=== PATIENT | female | born 1930 | race African-American/Black ===

== ENCOUNTER 2016-06-27 01:30 | Outpatient (CLI) ==
[2012-11-30 10:24] VITALS: TEMP 97
[2016-01-12 07:22] VITALS: BMI 25.8
== END 2016-06-27 01:31 | disposition home or self-care (01) ==
LOC: AMBL 01:30
PROVIDERS: ATTEND Family Medicine
DX: R06.2 Wheezing (principal); R53.1 Weakness; J44.9 Chronic obstructive pulmonary disease, unspecified; I50.9 Heart failure, unspecified; N28.9 Disorder of kidney and ureter, unspecified; W19.XXXA Unspecified fall, initial encounter; Y92.129 Unspecified place in nursing home as the place of occurrence of the external cause

== ENCOUNTER 2016-07-15 10:33 | Emergency (ER) ==
[2016-07-15 10:40] VITALS: BP 169/114; TEMP 97.8; BMI 24.7
[2016-07-15] MEDS ORDERED: DUONEB NEB STA (10:54)
[2016-07-15] MEDS ORDERED: LASIX IVP STA (10:55)
[2016-07-15 10:59] LABS: ABG PCO2 72.9 mmHg (35-45); ABG PH 7.292 (7.35-7.45)
[2016-07-15 11:00] LABS: ABG BASE EXCESS 9 (-2.0-2.0); ABG HCO3 35.2 (22.0-26.0); ABG TCO2 37 (22.0-28.0)
[2016-07-15] MEDS ORDERED: ROCEPHIN 1 GM in SODIUM CHLORIDE 50 ML IV STA (11:02)
[2016-07-15] MEDS ORDERED: AMIDATE IVP ONE (11:07)
[2016-07-15] MEDS ORDERED: VERSED ONE (11:07)
[2016-07-15] MEDS ORDERED: NORCURON ONE (11:07)
[2016-07-15] MEDS ORDERED: ROCEPHIN ONE (11:07)
[2016-07-15] MEDS ORDERED: ANECTINE ONE (11:07)
--- NOTE | 2016-07-15 11:16 | DI ---
EXAMINATION: AP chest radiograph. HISTORY: Short of air, on dialysis COMPARISON: 01/12/2016 FINDINGS: There is a focal opacity of the right mid to upper lung zone measuring up to 5.1 cm. There is adjac ent hazy increased density. There is prominence of the interstitial markings. No pneumothorax is s een. There is blunting of the left costophrenic angle. Enlargement of the cardiac silhouette is again seen. There is calcified atherosclerotic plaque of t he aorta. IMPRESSION: Cardiomegaly. Interstitial prominence suggesting interstitial edema. Right mid to upper lung zone opacities which may represent pneumonia or asymmetric pulmonary edema. Given the area of more focal opacity, follow-up to resolution is recommended as a mass cannot be ex cluded.
[2016-07-15 11:17] LABS: BASOPHILS % (AUTO) 0.2 % (0.0-3.0); EOSINOPHILS % (AUTO) 0.2 % (0.0-7.0); HEMATOCRIT 32.9 % (37.0-47.0); HEMOGLOBIN 10.7 g/dl (12.0-16.0); IMMATURE GRANULOCYTE % (AUTO) 0.6 % (0.0-5.0); LYMPHOCYTES # (AUTO) 0.6 K/uL (0.60-3.4); LYMPHOCYTES % (AUTO) 7.3 (10.0-50.0); MEAN CORPUSCULAR HEMOGLOBIN 28.1 pg (27.0-31.0); MEAN CORPUSCULAR HGB CONC 32.5 (31.8-35.4); MEAN CORPUSCULAR VOLUME 86.4 fl (81.0-99.0); MONOCYTES # (AUTO) 0.4 K/uL (0.4-2.0); NEUTROPHILS # (AUTO) 7.2 K/ul (2.0-6.9); NEUTROPHILS % (AUTO) 86.7; PLATELET COUNT 219 10^3/uL (140-440); RED BLOOD COUNT 3.81 10^6/ul (4.20-5.40); WHITE BLOOD COUNT 8.36 K/ul (4.6-10.2)
[2016-07-15 11:52] LABS: ANISOCYTOSIS 2+ (NOT PRESENT); PROTHROMBIN TIME 11.3 SEC (9.3-11.0)
[2016-07-15 12:03] LABS: ALBUMIN 3.2 g/dL (3.4-5.0); ALBUMIN/GLOBULIN RATIO 0.82; ANION GAP 16.6; BILIRUBIN,TOTAL 0.83 mg/dL (0.00-1.20); BUN/CREATININE RATIO 7.51; CALCIUM 8.7 mg/dL (8.2-10.2); POTASSIUM 5.6 mmol/L (3.5-5.10); TOTAL PROTEIN 7.1 g/dL (5.8-8.1); TROPONIN I 0.037 ng/ml (0.0000-0.4000)
[2016-07-15 12:10] LABS: ABG PH 7.366 (7.35-7.45)
[2016-07-15 12:11] LABS: ABG BASE EXCESS 9 (-2.0-2.0); ABG HCO3 34.7 (22.0-26.0); ABG PCO2 60.6 mmHg (35-45); ABG TCO2 37 (22.0-28.0)
[2016-07-15 12:11] LABS: CREATININE 7.45 mg/dL (0.60-1.30)
[2016-07-15 12:16] LABS: BILIRUBIN,URINE Negative (NEGATIVE); KETONES,URINE Negative (NEGATIVE); LEUKOCYTE ESTERASE ,URINE Negative (NEGATIVE); NITRITE,URINE Negative (NEGATIVE); PH,URINE 8.5 (5-9); PROTEIN,URINE 2+ (NEGATIVE); URINE, BLOOD Trace-intact (NEGATIVE)
[2016-07-15 12:24] LABS: ADD URINE MICROSCOPIC YES
--- NOTE | 2016-07-15 13:54 | ED.PDOC ---
General ED Provider: Dr. LINDSEY KEATING Chief Complaint: Shortness of Air Stated Complaint: SHORTNESS OF BREATH Time Seen by Physician: 10:37 Mode of Arrival: Ambulance Information Source: Patient, EMT Exam Limitations: No limitations Primary Care Provider: YOUSIF YANCEY Nursing and Triage Documentation Reviewed and Agree: Yes Respiratory Complaint Exam - Respiratory Complaint/Exam Symptoms Are: Still present Timing: Constant Initial Severity: Moderate Current Severity: Moderate Character: Reports: Non-productive cough Associated Signs and Symptoms: Reports: Dyspnea History of Healthcare-Acquired Pneumonia: No Related Surgical History: Reports: None Pulmonary Embolism Risk Factors: Bedrest Cardiac Risk Factors: Reports: Hypertension Pseudomonas Risk Factors: Reports: None Tuberculosis Risk Factors: Reports: None Status Asthmaticus Risk Factors: Reports: None Home Oxygen Use: No Recent Stress Test: No Recent Echo/LV Function: No Current Antibiotic Use: No Current Asthma Medication Use: No Respiratory Distress: Mild Inadequate Respiratory Effort: No Dysphagia Present: No Stridor Present: No JVD Present: No Accessory Muscle Use: No Retractions: Not Present Sinus Tenderness: None Grunting Respirations: No Kussmaul Respirations: No Differential Diagnoses: Pneumonia, Bronchitis Non-Traumatic Chest Pain Syncope: EKG Performed Review of Systems - Review Of Systems Constitutional: Reports: Malaise, Weakness Eyes: Reports: No symptoms Ears, Nose, Mouth, Throat: Reports: No symptoms Respiratory: Reports: Short of air Cardiac: Reports: No symptoms GI: Reports: No symptoms : Reports: No symptoms Musculoskeletal: Reports: No symptoms Skin: Reports: No symptoms Neurological: Reports: No symptoms Endocrine: Reports: No symptoms Hematologic/Lymphatic: Reports: No symptoms All Other Systems: Reviewed and Negative Past Medical History - Past Medical History Previously Healthy: No Endocrine: Reports: Unknown Cardiovascular: Reports: Hypertension Respiratory: Reports: Unknown Hematological: Reports: Unknown Gastrointestinal: Reports: Unknown Genitourinary: Reports: CKD (ON DIALYSIS) Neuro/Psych: Reports: Unknown Musculoskeletal: Reports: Unknown Cancer: Reports: Unknown Last Menstrual Period: none - Surgical History General Surgical History: Reports: Unknown - Family History Family History: Reports: Unknown (DIALYSIS DUE IN AM ) - Social History Smoking Status: Never smoker Hx Substance Use: No Alcohol Screening: None Physical Exam - Physical Exam Appearance: Ill-appearing, No pain distress, Well-nourished Ill-appearing: Severe Pain Distress: Mild Eyes: ROSAS, EOMI, Conjunctiva clear ENT: Ears normal, Nose normal, Oropharynx normal Respiratory: Breath sounds diminished, Crackles (RIGHT UPPER LOBE), Rhonchi Cardiovascular: RRR, Pulses normal, No rub, No murmur GI/: Soft, Nontender, No masses, Bowel sounds normal, No Organomegaly Musculoskeletal: Normal strength, ROM intact, No edema, No calf tenderness Skin: Warm, Dry, Normal color Neurological: Sensation intact, Motor intact, Reflexes intact, Cranial nerves intact, Alert, Oriented Psychiatric: Affect appropriate, Mood appropriate Critical Care Note - Critical Care Note Total Time (mins): 1 Course - Course Hematology/Chemistry: 07/15/16 11:10 07/15/16 11:10 Orders, Labs, Meds: Lab Review 07/15/16 07/15/16 07/15/16 10:49 11:10 12:07 WBC 8.36 RBC 3.81 L Hgb 10.7 L Hct 32.9 L MCV 86.4 MCH 28.1 MCHC 32.5 RDW Coeff of Luz Maria 22.5 H Plt Count 219 Immature Gran % (Auto) 0.6 Neut % (Auto) 86.7 Lymph % (Auto) 7.3 L [place] % (Auto) 5.0 Eos % (Auto) 0.2 Baso % (Auto) 0.2 Immature Gran # (Auto) 0.1 Neut # 7.2 H Lymph # 0.6 [place] # 0.4 Eos # 0.0 Baso # 0.0 PT 11.3 H INR 1.10 APTT 29.0 D-Dimer 1.86 Puncture Site L rad Lbrach O2 Saturation 76.0 L 94.0 L ABG pH 7.292 L* 7.366 ABG pCO2 72.9 H 60.6 H ABG pO2 47.0 L* 74.0 L ABG HCO3 35.2 H 34.7 H ABG Total CO2 37 H 37 H ABG Base Excess 9 H 9 H Buck Test + O2 Delivery Device Bipap FiO2 % 21.0 40.0 Sodium 134 L Potassium 5.6 H Chloride 91 L Carbon Dioxide 32 H Anion Gap 16.6 BUN 56 H Creatinine 7.45 H* Estimated GFR (MDRD) 6.00 BUN/Creatinine Ratio 7.51 Glucose 131 H Lactic Acid 4.5 Calcium 8.7 Total Bilirubin 0.83 AST 25 ALT 14 Alkaline Phosphatase 77 Total Creatine Kinase 67 Troponin I 0.0370 B-Natriuretic Peptide 2459 H Total Protein 7.1 Albumin 3.2 L Globulin 3.9 Albumin/Globulin Ratio 0.82 Urine Color Yellow Urine Clarity Clear Urine pH 8.5 Ur Specific [place] 1.015 Urine Protein 2+ Urine Glucose (UA) Negative Urine Ketones Negative Urine Blood Trace-intact Urine Nitrite Negative Urine Bilirubin Negative Urine Urobilinogen 0.2 Ur Leukocyte Esterase Negative Urine Microscopic RBC 0-2 Urine Microscopic WBC 0-2 Ur Squamous Epith Cells Not present Orders Category Date Time Status ABG DRAW REQUEST DAILY@0600 CARDIO 07/17/16 06:00 Ordered ABG DRAW REQUEST DAILY@0600 CARDIO 07/18/16 06:00 Ordered ABG DRAW REQUEST DAILY@0600 CARDIO 07/19/16 06:00 Ordered ABG DRAW REQUEST Routine CARDIO 07/15/16 11:30 Completed ABG DRAW REQUEST Stat CARDIO 07/15/16 10:49 Completed ABG DRAW REQUEST Stat CARDIO 07/15/16 12:09 Completed BIPAP Routine CARDIO 07/15/16 10:57 Active EKG-(ED ONLY) Stat CARDIO 07/15/16 10:48 Completed ED IV/MEDIPORT/POWERPORT .ONCE EMERGENCY 07/15/16 10:48 Active ABG DAILY@0600 LAB 07/16/16 06:00 Ordered ABG DAILY@0600 LAB 07/17/16 06:00 Ordered ABG DAILY@0600 LAB 07/18/16 06:00 Ordered ABG DAILY@0600 LAB 07/19/16 06:00 Ordered ABG Stat LAB 07/15/16 10:49 Completed ABG Stat LAB 07/15/16 12:07 Completed B-TYPE NATRIURETIC PEPTIDE Stat LAB 07/15/16 11:10 Completed BLOOD CULTURE Stat LAB 07/15/16 11:10 Received CBC W/ AUTO DIFF Stat LAB 07/15/16 11:10 Completed COMPREHENSIVE METABOLIC PANEL Stat LAB 07/15/16 11:10 Completed CREATINE KINASE Stat LAB 07/15/16 11:10 Completed D-DIMER Stat LAB 07/15/16 11:10 Completed LACTIC ACID Stat LAB 07/15/16 11:10 Completed PARTIAL THROMBOPLASTIN TIME Stat LAB 07/15/16 11:10 Completed PT WITH INR Stat LAB 07/15/16 11:10 Completed RBC MORPHOLOGY Stat LAB 07/15/16 11:10 Completed TROPONIN I Stat LAB 07/15/16 11:10 Completed URINALYSIS C & S IF INDICATED Stat LAB 07/15/16 12:07 Completed 0.9 % Sodium Chloride [Saline Flush] MEDS 07/15/16 10:48 Active 1 syr IVF PRN PRN Ceftriaxone Sodium [Rocephin] MEDS 07/15/16 11:07 Discontinued 1 gm .ROUTE .STK-MED ONE Ceftriaxone Sodium [Rocephin] 1 gm MEDS 07/15/16 11:02 Discontinued 0.9 % Sodium Chloride [Sodium Chloride] 50 ml IV ONCE Etomidate [Amidate] MEDS 07/15/16 11:07 Discontinued 20 mg IVP .STK-MED ONE Furosemide [Lasix] MEDS 07/15/16 10:55 Discontinued 40 mg IVP ONCE STA Ipratropium/Albuterol Neb [Duoneb] MEDS 07/15/16 10:54 Discontinued 1 vial NEB ONCE STA Midazolam HCl Inj [Versed] MEDS 07/15/16 11:07 Discontinued 5 mg .ROUTE .STK-MED ONE Succinylcholine Chloride [Anectine] MEDS 07/15/16 11:07 Discontinued 20 mg .ROUTE .STK-MED ONE Vecuronium [place] [Norcuron] MEDS 07/15/16 11:07 Discontinued 10 mg .ROUTE .STK-MED ONE CHEST, 1V AP ONLY Stat RADS 07/15/16 10:47 Completed Medications Generic Name Dose Route Start Last Admin Trade Name Freq PRN Reason Stop Dose Admin Sodium Chloride 1 syr 07/15/16 10:48 Saline Flush IVF PRN PRN To flush IV Discontinued Medications Generic Name Dose Route Start Last Admin Trade Name Freq PRN Reason Stop Dose Admin Albuterol/Ipratropium 1 vial 07/15/16 10:54 07/15/16 12:18 Duoneb NEB 07/15/16 10:55 Not Given ONCE STA Furosemide 40 mg 07/15/16 10:55 07/15/16 11:14 Lasix IVP 07/15/16 10:56 40 mg ONCE STA Administration Ceftriaxone Sodium 1 gm/ 50 mls @ 75 mls/hr 07/15/16 11:02 07/15/16 11:40 Sodium Chloride IV 07/15/16 11:41 75 mls/hr ONCE STA Administration Vital Signs: Temp Pulse Resp BP Pulse Ox 07/15/16 11:50 94 L 07/15/16 11:05 94 L 07/15/16 10:34 97.8 F 95 H 22 169/114 H 98 Departure - Departure Time of Disposition: 13:55 (TRANSFERED TO [facility] NO ICU BED)) Disposition: TSF SHORT-TRM HOSP Discharge Problem: Renal failure Right upper lobe pneumonia Qualifiers: Aspiration pneumonia type: unspecified Instructions: End Stage Kidney Disease (ED) Condition: Good Pt referred to PMD for follow-up: Yes (MARRY KEYS ) Allergies/Adverse Reactions: Allergies JAYSON Inhibitors Adverse Reaction (Verified 07/15/16 10:41) ibuprofen Adverse Reaction (Verified 07/15/16 10:41) Home Medications: Ambulatory Orders Aromatic Cascara Fluid Extract [Cascara [place]] 473 ml PO DAILY 01/12/16 Aspirin [Adult Low Dose Aspirin EC] 81 mg PO DAILY 01/12/16 Calcium Carbonate [Calcium] 500 mg PO DAILY 01/12/16 Carvedilol [Coreg] 12.5 mg PO BIDWM 01/12/16 Clonidine HCl 0.2 mg PO BID 01/12/16 Ergocalciferol (Vitamin D2) [Vitamin D2] 50,000 unit PO DAILY 01/12/16 Gabapentin [Neurontin] 300 mg PO BID 01/12/16 Hydrocodone Bit/Acetaminophen [[place] 5-325] 1 tab PO TID PRN 01/12/16 Hydroxyzine Pamoate [Vistaril] 25 mg PO BEDTIME 01/12/16 Lidocaine [Lidocream] 5 gm TP DAILY 01/12/16 Nifedipine [Nifedical Xl] 60 mg PO BID 01/12/16 Pantoprazole Sodium [Protonix] 20 mg PO DAILY 01/12/16 Disposition Discussed With: Patient, Family
== END 2016-07-15 15:00 | disposition short-term general hospital (02) ==
LOC: ED 10:33
DX: N18.9 Chronic kidney disease, unspecified (principal); J69.0 Pneumonitis due to inhalation of food and vomit; I10 Essential (primary) hypertension; Z99.2 Dependence on renal dialysis; Z79.899 Other long term (current) drug therapy
CPT/HCPCS: 36415; 80053; 81001; 82550; 82803; 83605; 83880; 84484; 85008; 85025; 85379; 85610; 85730; 87040; 93005; 93010; 94660; 96365; 96375; 99285

== ENCOUNTER 2016-07-15 14:55 | Outpatient (CLI) ==
[2012-11-30 10:24] VITALS: TEMP 97
[2016-07-15 10:40] VITALS: BMI 24.7
== END 2016-07-15 14:56 | disposition home or self-care (01) ==
LOC: AMBL 14:55
PROVIDERS: ATTEND Internal Medicine
DX: J96.90 Respiratory failure, unspecified, unspecified whether with hypoxia or hypercapnia (principal); N19 Unspecified kidney failure; Z99.2 Dependence on renal dialysis; J44.9 Chronic obstructive pulmonary disease, unspecified; R53.1 Weakness

== ENCOUNTER 2016-07-31 10:25 | Outpatient (CLI) | payer OTHER ==
[2012-11-30 10:24] VITALS: TEMP 97
[2016-07-31 11:32] LABS: CHOL/HDL RATIO 2.9 (4.5-5.5)
== END 2016-07-31 10:26 | disposition home or self-care (01) ==
LOC: NONPT 10:25
PROVIDERS: ATTEND Nurse Practitioner Family
DX: N18.9 Chronic kidney disease, unspecified (principal); R73.9 Hyperglycemia, unspecified; Z00.00 Encounter for general adult medical examination without abnormal findings; Z79.899 Other long term (current) drug therapy
CPT/HCPCS: 80061; 83036; 84443

== ENCOUNTER 2016-08-08 20:08 | Emergency (ER) | payer OTHER ==
[2016-08-08] MEDS ORDERED: DUONEB NEB STA (20:13)
[2016-08-08] MEDS ORDERED: SOLU-MEDROL 125 MG IVP STA (20:13)
[2016-08-08] MEDS ORDERED: CATAPRES PO STA (20:14)
[2016-08-08] MEDS ORDERED: MORPHINE 2 MG/ML SYRINGE IVP STA ×2 (20:14→23:02)
[2016-08-08 20:16] VITALS: TEMP 96.8; BMI 26.5
--- NOTE | 2016-08-08 20:27 | ED.PDOC ---
General ED Provider: Dr. MARIO HEARD Chief Complaint: Shortness of Air Stated Complaint: Feeling weak tired for 2-3 days, had HD only for 30 minutes, today shortness of breath. Time Seen by Physician: 20:25 Mode of Arrival: Ambulance Information Source: Patient Primary Care Provider: YOUSIF YANCEY Nursing and Triage Documentation Reviewed and Agree: Yes Respiratory Complaint Exam - Shortness of Air Complaint/Exam Symptoms Are: Still present Timing: Constant Initial Severity: Severe Current Severity: Severe Character: Reports: Dyspnea at rest Aggravating: Reports: URI Alleviating: Reports: None Associated Signs and Symptoms: Reports: Rapid breathing. Denies: Cough, Wheezing, Chest pain with cough, Chest pain, Fever, Chills, Diaphoresis, Nasal congestion, Dizziness, Calf pain, Calf swelling, Edema, Labored breathing, Decreased intake Related History: Reports: Similar episode History of Healthcare-Acquired Pneumonia: No Pulmonary Embolism Risk Factors: Reports: None Cardiac Risk Factors: Reports: Elevated lipids, Hypertension, CHF Pseudomonas Risk Factors: Reports: None Tuberculosis Risk Factors: Reports: None Home Oxygen Use: No Stridor Present: No Tracheal Deviation: No Subcutaneous Emphysema: No Accessory Muscle Use: No Diminished Breath Sounds: Yes Prolonged Expiratory Phase: Yes Unable to Speak Full Sentences: Yes Differential Diagnoses: CHF, Pulmonary Edema, Unstable Angina Review of Systems - Review Of Systems Constitutional: Reports: Malaise, Weakness Eyes: Reports: No symptoms Ears, Nose, Mouth, Throat: Reports: No symptoms Respiratory: Reports: Short of air Cardiac: Reports: No symptoms GI: Reports: No symptoms : Reports: No symptoms Musculoskeletal: Reports: No symptoms Skin: Reports: No symptoms Neurological: Reports: No symptoms Endocrine: Reports: No symptoms Hematologic/Lymphatic: Reports: No symptoms All Other Systems: Reviewed and Negative Past Medical History - Past Medical History Previously Healthy: No Endocrine: Reports: Unknown Cardiovascular: Reports: Hypertension Respiratory: Reports: Unknown Hematological: Reports: Unknown Gastrointestinal: Reports: Unknown Genitourinary: Reports: CKD (ON DIALYSIS) Neuro/Psych: Reports: Unknown Musculoskeletal: Reports: Unknown Cancer: Reports: Unknown Last Menstrual Period: UNKNOWN - Surgical History General Surgical History: Reports: Unknown - Family History Family History: Reports: Unknown (DIALYSIS DUE IN AM ) - Social History Smoking Status: Never smoker Hx Substance Use: No Alcohol Screening: None Physical Exam - Physical Exam Appearance: Ill-appearing, Thin Ill-appearing: Severe Eyes: EOMI, Conjunctiva clear ENT: Ears normal, Nose normal, Oropharynx normal Respiratory: Airway patent, Breath sounds diminished, Crackles, Rhonchi Cardiovascular: RRR, Pulses normal, No rub, No murmur GI/: Soft, Nontender, No masses, Bowel sounds normal, No Organomegaly Musculoskeletal: Normal strength, ROM intact, No edema, No calf tenderness Skin: Warm, Dry, Normal color Neurological: Sensation intact, Motor intact, Reflexes intact, Cranial nerves intact, Alert, Oriented Psychiatric: Affect appropriate, Mood appropriate Interpretation - Radiology Interpretation Radiology Interpretation By: Radiologist Radiology Results: Positive (CHF) Exam Interpreted: CT Scan Critical Care Note - Critical Care Note Total Time (mins): 0 Course - Course Hematology/Chemistry: 08/08/16 20:25 08/08/16 20:25 Orders, Labs, Meds: Lab Review 08/08/16 08/08/16 20:25 20:35 WBC 4.96 RBC 4.41 Hgb 12.1 Hct 39.3 MCV 89.1 MCH 27.4 MCHC 30.8 L RDW Coeff of Luz Maria 21.0 H Plt Count 226 Immature Gran % (Auto) 0.4 Neut % (Auto) 70.2 Lymph % (Auto) 20.0 [place] % (Auto) 6.0 Eos % (Auto) 2.8 Baso % (Auto) 0.6 Immature Gran # (Auto) 0.0 Neut # 3.5 Lymph # 1.0 [place] # 0.3 L Eos # 0.1 Baso # 0.0 Puncture Site Lb O2 Saturation 85.0 L ABG pH 7.438 ABG pCO2 51.1 H ABG pO2 58.0 L* ABG HCO3 34.6 H ABG Total CO2 36 H ABG Base Excess 10 H Buck Test + FiO2 % 21.0 Sodium 142 Potassium 3.5 Chloride 95 L Carbon Dioxide 35 H Anion Gap 15.5 BUN 24 H Creatinine 4.64 H* Estimated GFR (MDRD) 11.00 BUN/Creatinine Ratio 5.17 Glucose 110 Calcium 9.4 Total Bilirubin 0.62 AST 18 ALT 8 L Alkaline Phosphatase 79 Total Creatine Kinase 59 Troponin I 0.0320 Total Protein 7.1 Albumin 3.3 L Globulin 3.8 Albumin/Globulin Ratio 0.87 Orders Category Date Time Status ABG DRAW REQUEST Stat CARDIO 08/08/16 20:35 Ordered EKG-(ED ONLY) Stat CARDIO 08/08/16 20:13 Ordered NEBULIZER TREATMENT Stat CARDIO 08/08/16 20:13 Ordered Saline Lock [ED IV/MEDIPORT/POWERPORT] .ONCE EMERGENCY 08/08/16 20:22 Active ABG Stat LAB 08/08/16 20:35 Completed BNP [B-TYPE NATRIURETIC PEPTIDE] Stat LAB 08/08/16 21:47 Ordered CBC W/ AUTO DIFF Stat LAB 08/08/16 20:25 Completed COMPREHENSIVE METABOLIC PANEL Stat LAB 08/08/16 20:25 Completed CREATINE KINASE Stat LAB 08/08/16 20:25 Completed TROPONIN I Stat LAB 08/08/16 20:25 Completed 0.9 % Sodium Chloride [Saline Flush] MEDS 08/08/16 20:22 Ordered 1 syr IVF PRN PRN Clonidine HCl [Catapres] MEDS 08/08/16 20:14 Discontinued 0.3 mg PO ONCE STA Ipratropium/Albuterol Neb [Duoneb] MEDS 08/08/16 20:13 Discontinued 1 vial NEB ONCE STA Methylprednisolone Sod Succ/Pf [Solu-Medrol 125 mg] MEDS 08/08/16 20:39 Discontinued 125 mg IM ONCE STA Morphine Sulfate [Morphine 2 mg/ml Syringe] MEDS 08/08/16 20:39 Discontinued 2 mg IM ONCE STA Nitroglycerin [Nitrostat] MEDS 08/08/16 20:38 Discontinued 0.4 mg SL ONCE STA CT CHEST W/O CONTRAST Stat RADS 08/08/16 20:13 Completed Medications Generic Name Dose Route Start Last Admin Trade Name Freq PRN Reason Stop Dose Admin Sodium Chloride 1 syr 08/08/16 20:22 Saline Flush IVF PRN PRN To flush IV Discontinued Medications Generic Name Dose Route Start Last Admin Trade Name Freq PRN Reason Stop Dose Admin Albuterol/Ipratropium 1 vial 08/08/16 20:13 08/08/16 20:45 Duoneb NEB 08/08/16 20:14 1 vial ONCE STA Administration Clonidine 0.3 mg 08/08/16 20:14 08/08/16 20:22 Catapres PO 08/08/16 20:15 0.3 mg ONCE STA Administration Methylprednisolone Sodium Succinate 125 mg 08/08/16 20:39 08/08/16 20:49 Solu-Medrol 125 Mg IM 08/08/16 20:40 125 mg ONCE STA Administration Morphine Sulfate 2 mg 08/08/16 20:39 08/08/16 20:50 Morphine 2 Mg/Ml Syringe IM 08/08/16 20:40 2 mg ONCE STA Administration Nitroglycerin 0.4 mg 08/08/16 20:38 08/08/16 20:50 Nitrostat SL 08/08/16 20:39 0.4 mg ONCE STA Administration Vital Signs: Temp Pulse Resp BP Pulse Ox 08/08/16 20:11 96.8 F L 104 H 26 H 269/153 H 96 Departure - Departure Time of Disposition: 21:50 Disposition: TSF OTHER Discharge Problem: Shortness of breath Hypervolemia Qualifiers: Hypervolemia type: other Qualifier Code: (E87.79) Other fluid overload Instructions: Pulmonary Edema (ED) Condition: Stable Pt referred to PMD for follow-up: No Allergies/Adverse Reactions: Allergies JAYSON Inhibitors Adverse Reaction (Verified 07/15/16 10:41) ibuprofen Adverse Reaction (Verified 07/15/16 10:41) Home Medications: Ambulatory Orders Aromatic Cascara Fluid Extract [Cascara [place]] 473 ml PO DAILY 01/12/16 Aspirin [Adult Low Dose Aspirin EC] 81 mg PO DAILY 01/12/16 Calcium Carbonate [Calcium] 500 mg PO DAILY 01/12/16 Carvedilol [Coreg] 12.5 mg PO BIDWM 01/12/16 Clonidine HCl 0.2 mg PO BID 01/12/16 Ergocalciferol (Vitamin D2) [Vitamin D2] 50,000 unit PO DAILY 01/12/16 Gabapentin [Neurontin] 300 mg PO BID 01/12/16 Hydrocodone Bit/Acetaminophen [[place] 5-325] 1 tab PO TID PRN 01/12/16 Hydroxyzine Pamoate [Vistaril] 25 mg PO BEDTIME 01/12/16 Lidocaine [Lidocream] 5 gm TP DAILY 01/12/16 Nifedipine [Nifedical Xl] 60 mg PO BID 01/12/16 Pantoprazole Sodium [Protonix] 20 mg PO DAILY 01/12/16 Alprazolam 0.25 mg PO Q12HR PRN 07/30/16 Carvedilol 12.5 mg PO BID 07/30/16 Cholecalciferol (Vitamin D3) [Vitamin D3] 50,000 unit PO DIRECTED 07/30/16 Clonidine HCl [Catapres] 0.2 mg PO TID 07/30/16 Furosemide 40 mg PO DAILY 07/30/16 Gabapentin 300 mg PO BID 07/30/16 Hydralazine HCl 100 mg PO TID 07/30/16 Hydrocodone/Acetaminophen [[place] 5-325 Tablet] 1 each PO Q6HR PRN 07/30/16 Hydroxyzine Pamoate 25 mg PO BEDTIME 07/30/16 Nifedipine [Nifedical Xl] 60 mg PO BID 07/30/16 Ondansetron [Ondansetron Odt] 4 mg PO PRN 07/30/16 Pantoprazole Sodium 20 mg PO DAILY 07/30/16 Disposition Discussed With: Patient
[2016-08-08 20:31] LABS: BASOPHILS % (AUTO) 0.6 % (0.0-3.0); EOSINOPHILS # (AUTO) 0.1 K/ul (0.0-0.7); EOSINOPHILS % (AUTO) 2.8 % (0.0-7.0); HEMATOCRIT 39.3 % (37.0-47.0); HEMOGLOBIN 12.1 g/dl (12.0-16.0); IMMATURE GRANULOCYTE % (AUTO) 0.4 % (0.0-5.0); MEAN CORPUSCULAR HEMOGLOBIN 27.4 pg (27.0-31.0); MEAN CORPUSCULAR HGB CONC 30.8 (31.8-35.4); MEAN CORPUSCULAR VOLUME 89.1 fl (81.0-99.0); MONOCYTES # (AUTO) 0.3 K/uL (0.4-2.0); NEUTROPHILS # (AUTO) 3.5 K/ul (2.0-6.9); NEUTROPHILS % (AUTO) 70.2; PLATELET COUNT 226 10^3/uL (140-440); RED BLOOD COUNT 4.41 10^6/ul (4.20-5.40); WHITE BLOOD COUNT 4.96 K/ul (4.6-10.2)
[2016-08-08] MEDS ORDERED: NITROSTAT SL STA (20:38)
[2016-08-08 20:39] LABS: ABG PH 7.438 (7.35-7.45)
[2016-08-08] MEDS ORDERED: MORPHINE 2 MG/ML SYRINGE IM STA (20:39)
[2016-08-08] MEDS ORDERED: SOLU-MEDROL 125 MG IM STA (20:39)
[2016-08-08 20:40] LABS: ABG PCO2 51.1 mmHg (35-45)
[2016-08-08 20:41] LABS: ABG BASE EXCESS 10 (-2.0-2.0); ABG HCO3 34.6 (22.0-26.0); ABG TCO2 36 (22.0-28.0)
[2016-08-08 21:00] LABS: ALBUMIN 3.3 g/dL (3.4-5.0); ALBUMIN/GLOBULIN RATIO 0.87; ANION GAP 15.5; BILIRUBIN,TOTAL 0.62 mg/dL (0.00-1.20); BUN/CREATININE RATIO 5.17; CALCIUM 9.4 mg/dL (8.2-10.2); POTASSIUM 3.5 mmol/L (3.5-5.10); TOTAL PROTEIN 7.1 g/dL (5.8-8.1); TROPONIN I 0.032 ng/ml (0.0000-0.4000)
[2016-08-08 21:03] LABS: CREATININE 4.64 mg/dL (0.60-1.30)
--- NOTE | 2016-08-08 21:46 | CT ---
EXAM: CT of the chest without contrast. HISTORY: Shortness of breath. TECHNIQUE: COMPARISON: Chest x-ray day 07/15/2016. TECHNIQUE: Contiguous axial images at 5 mm intervals obtained from the lung apices to the upper abd omen. The study was performed without IV contrast. Sagittal and coronal reformats were reviewed. FINDINGS: The study is limited by motion artifact in the upper lobes. There are large bilateral pl eural effusions, right greater than left. Minimal adjacent atelectasis is seen. There is peribronc hial thickening. The airways are widely patent. Focal calcifications are seen in the right upper lo be. There are no suspicious nodules. The heart is enlarged. There is a small pericardial effusion. There are coronary calcifications. Aortic and mitral valve calcifications are seen. There is no significant mediastinal or hilar adenopathy. Evaluation limited without contrast. Limited views of the upper abdomen are unremarkable. The visualized portion of the liver, spleen, p ancreas and adrenal glands appear normal. Anasarca is seen. The osseous structures are normal for age. IMPRESSION: 1. Large bilateral pleural effusions with adjacent minimal atelectasis. 2. Mild peribronchial thickening. Correlate for edema. 3. Cardiomegaly. Small pericardial effusion. Coronary calcifications.
[2016-08-08] MEDS ORDERED: NORVASC PO STA (21:51)
[2016-08-08] MEDS ORDERED: LOPRESSOR IVP STA (21:51)
[2016-08-08] MEDS ORDERED: CARDIZEM INJ 125 MG in SODIUM CHLORIDE 100 ML IV SCH (23:30)
[2016-08-08] MEDS ORDERED: CARDIZEM INJ ONE (23:31)
[2016-08-08] MEDS ORDERED: TRANDATE IVP STA (23:48)
[2016-08-09 00:55] VITALS: BP 195/105
== END 2016-08-09 01:10 | disposition short-term general hospital (02) ==
LOC: ED 20:08
DX: R06.02 Shortness of breath (principal); E87.79 Other fluid overload; I10 Essential (primary) hypertension; E78.5 Hyperlipidemia, unspecified; I50.9 Heart failure, unspecified; N18.9 Chronic kidney disease, unspecified; Z99.2 Dependence on renal dialysis; Z79.899 Other long term (current) drug therapy
CPT/HCPCS: 36415; 80053; 82550; 82803; 83880; 84484; 85025; 93005; 93010; 94640; 96365; 96372; 96375; 99285

== ENCOUNTER 2016-08-09 01:22 | Outpatient (CLI) ==
[2012-11-30 10:24] VITALS: TEMP 97
[2016-08-08 20:16] VITALS: BMI 26.5
== END 2016-08-09 01:23 ==
LOC: AMBL 01:22
PROVIDERS: ATTEND Emergency Medicine
DX: I50.9 Heart failure, unspecified (principal)

== ENCOUNTER 2016-08-21 14:00 | Outpatient (CLI) ==
[2012-11-30 10:24] VITALS: TEMP 97
== END 2016-08-21 14:01 ==
LOC: AMBL 14:00
PROVIDERS: ATTEND Emergency Medicine
DX: I10 Essential (primary) hypertension (principal); N18.9 Chronic kidney disease, unspecified; Z99.2 Dependence on renal dialysis; R53.1 Weakness

== ENCOUNTER 2016-08-27 18:55 | Emergency (ER) ==
[2016-08-27 19:00] VITALS: TEMP 97.1; BMI 24.6
[2016-08-27] MEDS ORDERED: CATAPRES PO STA ×2 (19:05→19:09)
[2016-08-27] MEDS ORDERED: DUONEB NEB STA (19:07)
[2016-08-27 20:09] LABS: ABG BASE EXCESS 6 (-2.0-2.0); ABG HCO3 27.9 (22.0-26.0); ABG PCO2 27.3 mmHg (35-45); ABG PH 7.58 (7.35-7.45); ABG TCO2 29 (22.0-28.0)
[2016-08-27 20:10] LABS: BASOPHILS % (AUTO) 0.7 % (0.0-3.0); EOSINOPHILS # (AUTO) 0.1 K/ul (0.0-0.7); EOSINOPHILS % (AUTO) 1.5 % (0.0-7.0); HEMATOCRIT 46.6 % (37.0-47.0); IMMATURE GRANULOCYTE % (AUTO) 0.2 % (0.0-5.0); LYMPHOCYTES % (AUTO) 22.3 (10.0-50.0); MEAN CORPUSCULAR HEMOGLOBIN 28.1 pg (27.0-31.0); MEAN CORPUSCULAR HGB CONC 32.2 (31.8-35.4); MEAN CORPUSCULAR VOLUME 87.4 fl (81.0-99.0); MONOCYTES # (AUTO) 0.2 K/uL (0.4-2.0); NEUTROPHILS # (AUTO) 3.2 K/ul (2.0-6.9); NEUTROPHILS % (AUTO) 70.3; PLATELET COUNT 209 10^3/uL (140-440); RED BLOOD COUNT 5.33 10^6/ul (4.20-5.40); WHITE BLOOD COUNT 4.61 K/ul (4.6-10.2)
--- NOTE | 2016-08-27 20:10 | ED.PDOC ---
General ED Provider: Dr. MARIO HEARD Chief Complaint: Shortness of Air Stated Complaint: been shortness of breath since yesterday. Time Seen by Physician: 20:09 Mode of Arrival: Ambulance Information Source: Patient, EMT Primary Care Provider: ARELY CALDWELL Nursing and Triage Documentation Reviewed and Agree: Yes Respiratory Complaint Exam - Shortness of Air Complaint/Exam Symptoms Are: Still present Timing: Constant Initial Severity: Moderate Current Severity: Severe Character: Reports: Dyspnea at rest Aggravating: Reports: Allergens Alleviating: Reports: None Associated Signs and Symptoms: Denies: Cough, Wheezing, Chest pain with cough, Chest pain, Fever, Chills, Diaphoresis, Nasal congestion, Dizziness, Calf pain, Calf swelling, Edema, Rapid breathing, Labored breathing, Decreased intake Related History: Reports: Similar episode History of Healthcare-Acquired Pneumonia: No Pulmonary Embolism Risk Factors: Reports: None Review of Systems - Review Of Systems Constitutional: Reports: Malaise, Weakness Eyes: Reports: No symptoms Ears, Nose, Mouth, Throat: Reports: No symptoms Respiratory: Reports: Short of air Cardiac: Reports: No symptoms GI: Reports: No symptoms : Reports: No symptoms Musculoskeletal: Reports: No symptoms Skin: Reports: No symptoms Neurological: Reports: No symptoms Endocrine: Reports: No symptoms Hematologic/Lymphatic: Reports: No symptoms All Other Systems: Reviewed and Negative Past Medical History - Past Medical History Previously Healthy: No Endocrine: Reports: Unknown Cardiovascular: Reports: Hypertension Respiratory: Reports: Unknown Hematological: Reports: Unknown Gastrointestinal: Reports: Unknown Genitourinary: Reports: CKD (ON DIALYSIS) Neuro/Psych: Reports: Unknown Musculoskeletal: Reports: Unknown Cancer: Reports: Unknown Last Menstrual Period: na - Surgical History General Surgical History: Reports: Unknown - Family History Family History: Reports: Unknown (DIALYSIS DUE IN AM ) - Social History Smoking Status: Never smoker Hx Substance Use: No Alcohol Screening: None - Immunizations Tetanus Shot up to Date: (unknown) Physical Exam - Physical Exam Appearance: Ill-appearing Ill-appearing: Severe Eyes: ROSAS, EOMI, Conjunctiva clear ENT: Ears normal, Nose normal, Oropharynx normal Respiratory: Crackles Cardiovascular: RRR, Pulses normal, No rub, No murmur GI/: Soft, Nontender, No masses, Bowel sounds normal, No Organomegaly Musculoskeletal: Normal strength, ROM intact, No edema, No calf tenderness Skin: Warm, Dry, Normal color Neurological: Sensation intact, Motor intact, Reflexes intact, Cranial nerves intact, Alert, Oriented Psychiatric: Affect appropriate, Mood appropriate Interpretation - Radiology Interpretation Radiology Interpretation By: Radiologist Radiology Results: Negative Exam Interpreted: CT Scan Critical Care Note - Critical Care Note Total Time (mins): 0 Course - Course Hematology/Chemistry: 08/27/16 20:07 08/27/16 20:07 Orders, Labs, Meds: Lab Review 08/27/16 08/27/16 19:08 20:07 WBC 4.61 RBC 5.33 Hgb 15.0 Hct 46.6 MCV 87.4 MCH 28.1 MCHC 32.2 RDW Coeff of Luz Maria 20.7 H Plt Count 209 Immature Gran % (Auto) 0.2 Neut % (Auto) 70.3 Lymph % (Auto) 22.3 [place] % (Auto) 5.0 Eos % (Auto) 1.5 Baso % (Auto) 0.7 Immature Gran # (Auto) 0.0 Neut # 3.2 Lymph # 1.0 [place] # 0.2 L Eos # 0.1 Baso # 0.0 D-Dimer 1.69 Puncture Site Lr O2 Saturation 99.0 ABG pH 7.58 H* ABG pCO2 27.3 L ABG pO2 104.0 H ABG HCO3 27.9 H ABG Total CO2 29 H ABG Base Excess 6 H Buck Test + O2 Delivery Device Bnc Oxygen Liter Flow 2.00 FiO2 % 28.0 Sodium 142 Potassium 3.3 L Chloride 93 L Carbon Dioxide 32 H Anion Gap 20.3 BUN 27 H Creatinine 4.77 H* Estimated GFR (MDRD) 11.00 BUN/Creatinine Ratio 5.66 Glucose 81 L Calcium 9.7 Total Bilirubin 0.82 AST 29 ALT 15 Alkaline Phosphatase 87 Total Creatine Kinase 50 Troponin I 0.1160 B-Natriuretic Peptide 9785 H Total Protein 7.9 Albumin 3.9 Globulin 4.0 Albumin/Globulin Ratio 0.98 Procalcitonin 0.48 Orders Category Date Time Status ABG DRAW REQUEST Stat CARDIO 08/27/16 19:09 Completed EKG-(ED ONLY) Stat CARDIO 08/27/16 19:07 Completed NEBULIZER TREATMENT Stat CARDIO 08/27/16 19:07 Completed ED APPLY O2 .ONCE EMERGENCY 08/27/16 19:07 Active ED WOOD FLOOR REFINISHER APPLIED .ONCE EMERGENCY 08/27/16 19:07 Active ED IV/MEDIPORT/POWERPORT .ONCE EMERGENCY 08/27/16 19:07 Active ABG Stat LAB 08/27/16 19:08 Completed B-TYPE NATRIURETIC PEPTIDE Stat LAB 08/27/16 20:07 Completed BLOOD CULTURE Stat LAB 08/27/16 20:07 Received CBC W/ AUTO DIFF Stat LAB 08/27/16 20:07 Completed COMPREHENSIVE METABOLIC PANEL Stat LAB 08/27/16 20:07 Completed CREATINE KINASE Stat LAB 08/27/16 20:07 Completed D-DIMER Stat LAB 08/27/16 20:07 Completed PROCALCITONIN Stat LAB 08/27/16 20:07 Completed TROPONIN I Stat LAB 08/27/16 20:07 Completed 0.9 % Sodium Chloride [Saline Flush] MEDS 08/27/16 19:07 Ordered 1 syr IVF PRN PRN Clonidine HCl [Catapres] MEDS 08/27/16 19:09 Discontinued 0.1 mg PO ONCE STA Clonidine HCl [Catapres] MEDS 08/27/16 19:05 Discontinued 0.2 mg PO ONCE STA Dextrose 5 % in Water [Premix D5w 250 ml Vial] 1 vial MEDS 08/27/16 22:30 Ordered Nitroglycerin/D5w [Nitroglycerin] 25 mg IV 10 mcg/min Ipratropium/Albuterol Neb [Duoneb] MEDS 08/27/16 19:07 Discontinued 1 vial NEB ONCE STA Metoprolol Tartrate [Lopressor] MEDS 08/27/16 20:20 Discontinued 5 mg IVP ONCE STA Morphine Sulfate [Morphine 2 mg/ml Syringe] MEDS 08/27/16 20:21 Discontinued 2 mg IVP ONCE STA Ondansetron HCl/Pf [Zofran 4 mg/2 ml] MEDS 08/27/16 20:21 Discontinued 4 mg IVP ONCE STA CHEST, 1V AP ONLY Stat RADS 08/27/16 19:[address] HEAD W/O CONTRAST Stat RADS 08/27/16 22:01 Completed Medications Generic Name Dose Route Start Last Admin Trade Name Freq PRN Reason Stop Dose Admin Nitroglycerin/Dextrose 25 mg/ 250 mls @ 6 mls/hr 08/27/16 22:30 08/27/16 22: 39 DEXTROSE 5 % IN WATER IV 10 mcg/min .Q24H ALEX 6 mls/hr Protocol Administration 10 MCG/MIN Sodium Chloride 1 syr 08/27/16 19:07 08/27/16 20:42 Saline Flush IVF 1 syr PRN PRN Administration To flush IV Discontinued Medications Generic Name Dose Route Start Last Admin Trade Name Nikki PRN Reason Stop Dose Admin Albuterol/Ipratropium 1 vial 08/27/16 19:07 08/27/16 20:06 Duoneb NEB 08/27/16 19:08 1 vial ONCE STA Administration Clonidine 0.2 mg 08/27/16 19:05 08/27/16 19:10 Catapres PO 08/27/16 19:06 0.2 mg ONCE STA Administration Clonidine 0.1 mg 08/27/16 19:09 Catapres PO 08/27/16 19:10 ONCE STA Metoprolol Tartrate 5 mg 08/27/16 20:20 08/27/16 20:42 Lopressor IVP 08/27/16 20:21 5 mg ONCE STA Administration Morphine Sulfate 2 mg 08/27/16 20:21 08/27/16 20:37 Morphine 2 Mg/Ml Syringe IVP 08/27/16 20:22 2 mg ONCE STA Administration Ondansetron HCl 4 mg 08/27/16 20:21 08/27/16 20:36 Zofran 4 Mg/2 Ml IVP 08/27/16 20:22 4 mg ONCE STA Administration Vital Signs: Temp Pulse Resp BP Pulse Ox 08/27/16 22:39 66 20 215/103 H 08/27/16 18:56 97.1 F L 116 H 32 H 199/148 H 94 L Departure - Departure Time of Disposition: 23:02 Disposition: TSF OTHER Discharge Problem: Hypertensive urgency, Hemodialysis patient Fluid overload Qualifiers: Hypervolemia type: other Qualifier Code: (E87.79) Other fluid overload Instructions: Hypertensive Crisis (ED) Condition: Stable Pt referred to PMD for follow-up: No Allergies/Adverse Reactions: Allergies JAYSON Inhibitors Adverse Reaction (Verified 07/15/16 10:41) ibuprofen Adverse Reaction (Verified 07/15/16 10:41) Home Medications: Ambulatory Orders Aspirin [Adult Low Dose Aspirin EC] 81 mg PO DAILY 01/12/16 Carvedilol [Coreg] 12.5 mg PO BIDWM 01/12/16 Ergocalciferol (Vitamin D2) [Vitamin D2] 50,000 unit PO WEEKLY 01/12/16 Nifedipine [Nifedical Xl] 60 mg PO BID 01/12/16 Pantoprazole Sodium [Protonix] 20 mg PO DAILY 01/12/16 Clonidine HCl [Catapres] 0.2 mg PO TID 07/30/16 Furosemide 40 mg PO DAILY 07/30/16 Hydralazine HCl 100 mg PO TID 07/30/16 Transfer Form Completed: Yes Disposition Discussed With: Patient
[2016-08-27] MEDS ORDERED: LOPRESSOR IVP STA (20:20)
[2016-08-27] MEDS ORDERED: MORPHINE 2 MG/ML SYRINGE IVP STA (20:21)
[2016-08-27] MEDS ORDERED: ZOFRAN 4 MG/2 ML IVP STA (20:21)
[2016-08-27 20:37] LABS: ALBUMIN 3.9 g/dL (3.4-5.0); ALBUMIN/GLOBULIN RATIO 0.98; ANION GAP 20.3; BILIRUBIN,TOTAL 0.82 mg/dL (0.00-1.20); BUN/CREATININE RATIO 5.66; CALCIUM 9.7 mg/dL (8.2-10.2); POTASSIUM 3.3 mmol/L (3.5-5.10); TOTAL PROTEIN 7.9 g/dL (5.8-8.1); TROPONIN I 0.116 ng/ml (0.0000-0.4000)
[2016-08-27 20:38] LABS: CREATININE 4.77 mg/dL (0.60-1.30)
[2016-08-27] MEDS ORDERED: NITROPRESS 50 MG in DEXTROSE 5%-WATER IV SOLN 248 ML IV SCH (22:30)
[2016-08-27] MEDS ORDERED: NITROGLYCERIN 25 MG in PREMIX D5W 250 ML VIAL 1 VIAL IV SCH (22:30)
--- NOTE | 2016-08-27 22:43 | CT ---
EXAM: CT head without contrast 08/27/2016. Sagittal and coronal reformatted images obtained HISTORY: Headache COMPARISON: 04/11/2013 FINDINGS: There is no evidence of intracranial hemorrhage. The midline is maintained. There is no hydrocephalus. Generalized atrophy. Chronic small vessel ischemic changes. No cerebellar tonsilla r ectopia. Evaluation of the calvarium shows no fracture. The mastoid air cells are normally pneum atized. IMPRESSION: No acute intracranial abnormality.
[2016-08-27] MEDS ORDERED: NITROGLYCERIN 250 ML IV ONE (23:39)
[2016-08-27 23:41] VITALS: BP 206/104
--- NOTE | 2016-08-28 07:37 | DI ---
EXAM: CHEST FRONTAL VIEW HISTORY: Chest. COMPARISON: 07/15/2016 FINDINGS: Mild cardiomegaly is stable. Moderate aortic atherosclerosis. Subtle pulmonary vascular congestion. Previously noted consolidation right upper lobe has resolved. Questionable mild infil trate in the left base. No visible pleural fluid or pneumothorax. IMPRESSION: Cardiomegaly and mild left base density. Consider atelectasis or subtle pneumonia. Superimposed mi ld pulmonary vascular congestion.
== END 2016-08-28 00:05 | disposition short-term general hospital (02) ==
LOC: ED 18:55
DX: E87.79 Other fluid overload (principal); I16.0 Hypertensive urgency; N18.9 Chronic kidney disease, unspecified; Z99.2 Dependence on renal dialysis; R06.02 Shortness of breath; Z79.899 Other long term (current) drug therapy
CPT/HCPCS: 36415; 80053; 82550; 82803; 83880; 84145; 84484; 85025; 85379; 87040; 93005; 93010; 94640; 96365; 96375; 99285

== ENCOUNTER 2016-09-16 15:12 | Outpatient (CLI) ==
[2012-11-30 10:24] VITALS: TEMP 97
== END 2016-09-16 15:13 | disposition home or self-care (01) ==
LOC: AMBL 15:12
PROVIDERS: ATTEND Emergency Medicine
DX: T82.838A Hemorrhage due to vascular prosthetic devices, implants and grafts, initial encounter (principal); Y84.1 Kidney dialysis as the cause of abnormal reaction of the patient, or of later complication, without mention of misadventure at the time of the procedure

== ENCOUNTER 2016-09-22 07:05 | Emergency (ER) ==
[2016-09-22] MEDS ORDERED: DUONEB NEB ONE (07:17)
[2016-09-22] MEDS ORDERED: NITROSTAT SL PRN (07:21)
[2016-09-22] MEDS ORDERED: ZOFRAN 4 MG/2 ML IVP STA (07:21)
[2016-09-22] MEDS ORDERED: MORPHINE 2 MG/ML SYRINGE IVP STA (07:21)
[2016-09-22] MEDS ORDERED: LASIX IVP STA (07:24)
[2016-09-22] MEDS ORDERED: LASIX ONE (07:25)
[2016-09-22] MEDS ORDERED: CATAPRES PO STA (07:25)
--- NOTE | 2016-09-22 07:26 | ED.PDOC ---
General ED Provider: Dr. CATHRYN MIRANDA JR Chief Complaint: Shortness of Air Stated Complaint: Woke up with shortness of breath. Dialysis patient.[End]"I thought I was going to " "It felt like it took them 30 minutes to get there 97.8 112 36 100% 199/115 no pain, EMS notes fistular bleeding September 13, Arrived via EMS, with c/o shortness of breath upon waking this am. Visibly short of breath, using accessory muscles. O2@100% per non-rebreather. Awake, answering questions.[End]AVF present in right arm. Thrill and bruitt present. States last day of dialysis was Friday. patient is not sure of last dialysis, states last dialysis "they did not stop it up" and she was bleeding all over. initially unable to answer questions severely short of air better after duoneb and lasix. Time Seen by Physician: 07:26 Mode of Arrival: Ambulance Information Source: Patient Exam Limitations: Clinical condition Primary Care Provider: ARELY CALDWELL Nursing and Triage Documentation Reviewed and Agree: No Review of Systems - Review Of Systems Constitutional: Reports: Malaise Eyes: Reports: No symptoms Ears, Nose, Mouth, Throat: Reports: No symptoms Respiratory: Reports: Short of air, Wheezing Cardiac: Reports: No symptoms GI: Reports: No symptoms : Reports: No symptoms Musculoskeletal: Reports: No symptoms Skin: Reports: No symptoms Neurological: Reports: No symptoms Endocrine: Reports: No symptoms Hematologic/Lymphatic: Reports: No symptoms All Other Systems: Other Past Medical History - Past Medical History Previously Healthy: No Endocrine: Reports: Unknown Cardiovascular: Reports: Hypertension Respiratory: Reports: Unknown Hematological: Reports: Unknown Gastrointestinal: Reports: Unknown Genitourinary: Reports: CKD (ON DIALYSIS) Neuro/Psych: Reports: Unknown Musculoskeletal: Reports: Unknown Cancer: Reports: Unknown - Surgical History General Surgical History: Reports: Unknown - Family History Family History: Reports: Unknown (DIALYSIS DUE IN AM ) - Social History Smoking Status: Never smoker Hx Substance Use: No Alcohol Screening: None Physical Exam - Physical Exam Appearance: Ill-appearing, Thin Ill-appearing: Moderate Eyes: ROSAS, EOMI, Conjunctiva clear ENT: Ears normal, Nose normal, Oropharynx normal Neck: Supple Respiratory: Airway patent, Breath sounds diminished, Retractions (grunting) Cardiovascular: RRR, Tachycardia Skin: Warm, Dry, Normal color Neurological: Sensation intact, Alert Interpretation - Radiology Interpretation Radiology Interpretation By: ED Physician Radiology Results: Positive Exam Interpreted: CXR (RML infiltrate) - EKG Interpretation Time of EKG #1: 08:57 Rate: Normal Rhythm: Sinus ST Segment: Other (LAE) Re-Evaluation - Re-Evaluation Time of Re-Evaluation: 08:51 Status: Improved Vital Signs Stable: Yes Appearance: NAD Lungs: Other (raspy rhonchi no rales) Physician Notification - Case Discussed Physician Notified: DR BONNER Time of Notification: 10:20 (ajay-accepts) Critical Care Note - Critical Care Note Total Time (mins): 30 Course - Course Hematology/Chemistry: 09/22/16 07:35 09/22/16 07:35 Orders, Labs, Meds: Lab Review 09/22/16 09/22/16 09/22/16 07:22 07:35 08:33 WBC 8.74 RBC 2.92 L Hgb 8.1 L Hct 25.0 L MCV 85.6 MCH 27.7 MCHC 32.4 RDW Coeff of Luz Maria 17.9 H Plt Count 204 Immature Gran % (Auto) 0.9 Neut % (Auto) 82.0 Lymph % (Auto) 11.8 [place] % (Auto) 4.3 Eos % (Auto) 0.7 Baso % (Auto) 0.3 Immature Gran # (Auto) 0.1 Neut # 7.2 H Lymph # 1.0 [place] # 0.4 Eos # 0.1 Baso # 0.0 Puncture Site Lrad Lrad O2 Saturation 100.0 85.0 L ABG pH 7.322 L 7.392 ABG pCO2 68.1 H 56.0 H ABG pO2 251.0 H 51.0 L* ABG HCO3 35.3 H 34.0 H ABG Total CO2 37 H 36 H ABG Base Excess 9 H 9 H Buck Test + + O2 Delivery Device Neb Oxygen Liter Flow 8.00 FiO2 % 21.0 Sodium 137 Potassium 4.3 Chloride 95 L Carbon Dioxide 34 H Anion Gap 12.3 BUN 34 H Creatinine 4.94 H* Estimated GFR (MDRD) 10.00 BUN/Creatinine Ratio 6.88 Glucose 144 H Lactic Acid 14.0 Calcium 8.8 Total Bilirubin 0.66 AST 38 H ALT 16 Alkaline Phosphatase 87 Total Creatine Kinase 48 Troponin I 0.0260 B-Natriuretic Peptide 3489 H Total Protein 6.5 Albumin 3.3 L Globulin 3.2 Albumin/Globulin Ratio 1.03 Procalcitonin 0.28 Orders Category Date Time Status ABG DRAW REQUEST Stat CARDIO 09/22/16 07:22 Completed ABG DRAW REQUEST Stat CARDIO 09/22/16 08:33 Completed EKG-(ED ONLY) Stat CARDIO 09/22/16 07:21 Completed NEBULIZER TREATMENT Stat CARDIO 09/22/16 07:41 Completed ED APPLY O2 .ONCE EMERGENCY 09/22/16 07:21 Active ED PHILOSOPHY PROFESSOR APPLIED .ONCE EMERGENCY 09/22/16 07:21 Active ED IV/MEDIPORT/POWERPORT .ONCE EMERGENCY 09/22/16 07:21 Active ABG Stat LAB 09/22/16 07:22 Completed ABG Stat LAB 09/22/16 08:33 Completed B-TYPE NATRIURETIC PEPTIDE Stat LAB 09/22/16 07:35 Completed BLOOD CULTURE Stat LAB 09/22/16 07:35 Received CBC W/ AUTO DIFF Stat LAB 09/22/16 07:35 Completed COMPREHENSIVE METABOLIC PANEL Stat LAB 09/22/16 07:35 Completed CREATINE KINASE Stat LAB 09/22/16 07:35 Completed LACTIC ACID Stat LAB 09/22/16 07:35 Completed PROCALCITONIN Stat LAB 09/22/16 07:35 Completed TROPONIN I Stat LAB 09/22/16 07:35 Completed 0.9 % Sodium Chloride [Saline Flush] MEDS 09/22/16 07:21 Active 1 syr IVF PRN PRN Clonidine HCl [Catapres] MEDS 09/22/16 07:25 Discontinued 0.2 mg PO ONCE STA Furosemide [Lasix] MEDS 09/22/16 07:25 Discontinued 100 mg .ROUTE .STK-MED ONE Furosemide [Lasix] MEDS 09/22/16 07:24 Discontinued 80 mg IVP ONCE STA Ipratropium/Albuterol Neb [Duoneb] MEDS 09/22/16 07:17 Discontinued 1 vial NEB .STK-MED ONE Ipratropium/Albuterol Neb [Duoneb] MEDS 09/22/16 07:41 Discontinued 1 vial NEB ONCE STA Morphine Sulfate [Morphine 2 mg/ml Syringe] MEDS 09/22/16 07:21 Discontinued 2 mg IVP ONCE STA Nitroglycerin [Nitrostat] MEDS 09/22/16 07:21 Active 0.4 mg SL Q5MIN X 3 DOSES PRN Ondansetron HCl/Pf [Zofran 4 mg/2 ml] MEDS 09/22/16 07:21 Discontinued 4 mg IVP ONCE STA CHEST, 1V AP ONLY Stat RADS 09/22/16 07:21 Completed Medications Generic Name Dose Route Start Last Admin Trade Name Freq PRN Reason Stop Dose Admin Nitroglycerin 0.4 mg 09/22/16 07:21 09/22/16 07:27 Nitrostat SL 0.4 mg Q5MIN X 3 DOSES PRN Administration Chest Pain Sodium Chloride 1 syr 09/22/16 07:21 09/22/16 07:35 Saline Flush IVF 1 syr PRN PRN Administration To flush IV Discontinued Medications Generic Name Dose Route Start Last Admin Trade Name Freq PRN Reason Stop Dose Admin Albuterol/Ipratropium 1 vial 09/22/16 07:41 09/22/16 07:45 Duoneb NEB 09/22/16 07:42 Not Given ONCE STA Clonidine 0.2 mg 09/22/16 07:25 09/22/16 07:40 Catapres PO 09/22/16 07:26 0.2 mg ONCE STA Administration Furosemide 80 mg 09/22/16 07:24 09/22/16 07:28 Lasix IVP 09/22/16 07:25 80 mg ONCE STA Administration Morphine Sulfate 2 mg 09/22/16 07:21 09/22/16 07:34 Morphine 2 Mg/Ml Syringe IVP 09/22/16 07:22 2 mg ONCE STA Administration Ondansetron HCl 4 mg 09/22/16 07:21 09/22/16 07:33 Zofran 4 Mg/2 Ml IVP 09/22/16 07:22 4 mg ONCE STA Administration Vital Signs: Temp Pulse Resp BP Pulse Ox 09/22/16 07:39 100 09/22/16 07:11 97.8 F 112 H 36 H 199/115 H 100 Departure - Departure Time of Disposition: 10:21 Disposition: TSF SHORT-TRM HOSP Discharge Problem: Respiratory failure, CHF (congestive heart failure), Renal failure Condition: Stable Pt referred to PMD for follow-up: No (hospitalist) Allergies/Adverse Reactions: Allergies JAYSON Inhibitors Adverse Reaction (Verified 07/15/16 10:41) ibuprofen Adverse Reaction (Verified 07/15/16 10:41) Home Medications: Ambulatory Orders Aspirin [Adult Low Dose Aspirin EC] 81 mg PO DAILY 01/12/16 Carvedilol [Coreg] 12.5 mg PO BIDWM 01/12/16 Ergocalciferol (Vitamin D2) [Vitamin D2] 50,000 unit PO WEEKLY 01/12/16 Nifedipine [Nifedical Xl] 60 mg PO BID 01/12/16 Pantoprazole Sodium [Protonix] 20 mg PO DAILY 01/12/16 Clonidine HCl [Catapres] 0.2 mg PO TID 07/30/16 Furosemide 40 mg PO DAILY 07/30/16 Hydralazine HCl 100 mg PO TID 07/30/16
[2016-09-22 07:29] VITALS: BP 199/115; TEMP 97.8; BMI 20.9
[2016-09-22 07:32] LABS: ABG PH 7.322 (7.35-7.45)
[2016-09-22 07:33] LABS: ABG BASE EXCESS 9 (-2.0-2.0); ABG HCO3 35.3 (22.0-26.0); ABG PCO2 68.1 mmHg (35-45); ABG TCO2 37 (22.0-28.0)
[2016-09-22] MEDS ORDERED: DUONEB NEB STA (07:41)
[2016-09-22 07:44] LABS: BASOPHILS % (AUTO) 0.3 % (0.0-3.0); EOSINOPHILS # (AUTO) 0.1 K/ul (0.0-0.7); EOSINOPHILS % (AUTO) 0.7 % (0.0-7.0); HEMOGLOBIN 8.1 g/dl (12.0-16.0); IMMATURE GRANULOCYTE % (AUTO) 0.9 % (0.0-5.0); LYMPHOCYTES % (AUTO) 11.8 (10.0-50.0); MEAN CORPUSCULAR HEMOGLOBIN 27.7 pg (27.0-31.0); MEAN CORPUSCULAR HGB CONC 32.4 (31.8-35.4); MEAN CORPUSCULAR VOLUME 85.6 fl (81.0-99.0); MONOCYTES # (AUTO) 0.4 K/uL (0.4-2.0); MONOCYTES % (AUTO) 4.3 (0-10); NEUTROPHILS # (AUTO) 7.2 K/ul (2.0-6.9); PLATELET COUNT 204 10^3/uL (140-440); RED BLOOD COUNT 2.92 10^6/ul (4.20-5.40); WHITE BLOOD COUNT 8.74 K/ul (4.6-10.2)
[2016-09-22 08:11] LABS: ALBUMIN 3.3 g/dL (3.4-5.0); ALBUMIN/GLOBULIN RATIO 1.03; ANION GAP 12.3; BILIRUBIN,TOTAL 0.66 mg/dL (0.00-1.20); BUN/CREATININE RATIO 6.88; CALCIUM 8.8 mg/dL (8.2-10.2); POTASSIUM 4.3 mmol/L (3.5-5.10); TOTAL PROTEIN 6.5 g/dL (5.8-8.1); TROPONIN I 0.026 ng/ml (0.0000-0.4000)
[2016-09-22 08:15] LABS: CREATININE 4.94 mg/dL (0.60-1.30)
[2016-09-22 08:50] LABS: ABG BASE EXCESS 9 (-2.0-2.0); ABG PH 7.392 (7.35-7.45); ABG TCO2 36 (22.0-28.0)
--- NOTE | 2016-09-22 09:08 | DI ---
EXAM: Chest 1 view. HISTORY: Chest pain COMPARISON: 08/27/2016 FINDINGS: There is cardiomegaly with congestive heart failure. There is pulmonary venous congestio n, minimal to moderate central pulmonary edema and small left pleural effusion. Atelectasis sugges guilherme left lower lobe. No acute finding seen involving skeletal structures. Impression 1. Cardiomegaly and aortic atherosclerosis. 2. Interval change with congestive heart failure. There is pulmonary venous congestion, central p ulmonary edema and small left pleural effusion. 3. Left lower lobe atelectasis
== END 2016-09-22 11:40 | disposition short-term general hospital (02) ==
LOC: ED 07:05
DX: J96.00 Acute respiratory failure, unspecified whether with hypoxia or hypercapnia (principal); I50.9 Heart failure, unspecified; N18.9 Chronic kidney disease, unspecified; R00.0 Tachycardia, unspecified; I10 Essential (primary) hypertension; Z99.2 Dependence on renal dialysis; Z79.899 Other long term (current) drug therapy
CPT/HCPCS: 36415; 80053; 82550; 82803; 83605; 83880; 84145; 84484; 85025; 87040; 93005; 93010; 94640; 96374; 96375; 99285

== ENCOUNTER 2016-09-22 11:48 | Outpatient (CLI) | payer OTHER ==
[2012-11-30 10:24] VITALS: TEMP 97
[2016-09-22 07:29] VITALS: BMI 20.9
== END 2016-09-22 11:49 ==
LOC: AMBL 11:48
PROVIDERS: ATTEND Emergency Medicine
DX: R06.9 Unspecified abnormalities of breathing (principal); I50.9 Heart failure, unspecified; N19 Unspecified kidney failure; Z99.2 Dependence on renal dialysis; Z87.09 Personal history of other diseases of the respiratory system

== ENCOUNTER 2016-10-07 12:36 | Outpatient (CLI) ==
[2012-11-30 10:24] VITALS: TEMP 97
[2016-10-07 13:24] LABS: HEMOGLOBIN 6.6 g/dl (12.0-16.0)
[2016-10-07 13:28] LABS: HEMATOCRIT 19.4 % (37.0-47.0)
== END 2016-10-07 12:37 | disposition home or self-care (01) ==
LOC: NONPT 12:36
PROVIDERS: ATTEND Internal Medicine Nephrology
DX: D64.9 Anemia, unspecified (principal)
CPT/HCPCS: 85014; 85018

== ENCOUNTER 2016-10-09 09:13 | Emergency (ER) ==
[2016-10-09] MEDS ORDERED: MORPHINE 2 MG/ML SYRINGE IVP STA (09:21)
--- NOTE | 2016-10-09 09:21 | ED.PDOC ---
General ED Provider: Dr. CATHRYN MIRANDA JR Chief Complaint: Shortness of Air Stated Complaint: 86 yo dialysis patietn moaning loudly with each expiration increased heart rate aparrently syncopal at home unable to talk will say no and no it doesn't(hurt) but uable to get her to say yes or other words does not give intelligible answer to what is your name? H tachy abd seems tender susanna RUQ but denies no cce good aeration but loud upper resp noise. RN contacts family- esther with 2 units blood yesterday is lactose intolerant but decided she wanted a milkshake yesterday, today abdominal pain and diarrhea and short of breath today Time Seen by Physician: 09:10 Mode of Arrival: Ambulance Information Source: Family, EMT Exam Limitations: No limitations Primary Care Provider: ARELY CALDWELL Nursing and Triage Documentation Reviewed and Agree: No Review of Systems - Review Of Systems Constitutional: Reports: Malaise, Weakness Eyes: Reports: Other Ears, Nose, Mouth, Throat: Reports: No symptoms Respiratory: Reports: Cough, Short of air Cardiac: Reports: Other GI: Reports: Diarrhea, Nausea : Reports: No symptoms Musculoskeletal: Reports: No symptoms Skin: Reports: No symptoms Neurological: Reports: No symptoms Endocrine: Reports: No symptoms Hematologic/Lymphatic: Reports: No symptoms All Other Systems: Other Past Medical History - Past Medical History Previously Healthy: No Endocrine: Reports: Unknown Cardiovascular: Reports: Hypertension Respiratory: Reports: Unknown Hematological: Reports: Unknown Gastrointestinal: Reports: Unknown Genitourinary: Reports: CKD (ON DIALYSIS) Neuro/Psych: Reports: Unknown Musculoskeletal: Reports: Unknown Cancer: Reports: Unknown - Surgical History General Surgical History: Reports: Unknown - Family History Family History: Reports: Unknown (DIALYSIS DUE IN AM ) - Social History Smoking Status: Never smoker Hx Substance Use: No Alcohol Screening: None Physical Exam - Physical Exam Appearance: Ill-appearing, Thin Ill-appearing: Severe Pain Distress: None Neck: Supple Respiratory: Airway patent, Breath sounds diminished Cardiovascular: RRR, Tachycardia GI/: Soft, Tender (denies pain but moans when palpated note loose stool) Musculoskeletal: ROM intact, Limited strength Skin: Dry Neurological: Disoriented Interpretation - Radiology Interpretation Radiology Interpretation By: Radiologist Radiology Results: Positive Exam Interpreted: CXR - EKG Interpretation Time of EKG #1: 09:40 Rate: Normal Rhythm: Sinus Ectopy: None ST Segment: Other (LAE) Re-Evaluation - Re-Evaluation Time of Re-Evaluation: 09:43 (patietn alert oriented"thank you for saving my life" states "I did thistomyself" "I cannoteat lactose""I cannot eat that" (ice cream)) Status: Improved (patient appears unimproved but no longer moaning has sarmiento and bipap) Vital Signs Stable: Yes Appearance: NAD Lungs: Other (raspy) Physician Notification - Case Discussed Physician Notified: Chelo Shields will call hospitalist Time of Notification: 12:02 ([phone] dr hernandez accepts to chelo) Critical Care Note - Critical Care Note Total Time (mins): 30 Course - Course Hematology/Chemistry: 10/09/16 10:20 10/09/16 10:20 Orders, Labs, Meds: Lab Review 10/09/16 10/09/16 10/09/16 09:21 09:37 10:20 WBC 14.93 H RBC 3.38 L Hgb 9.6 L D Hct 28.0 L D MCV 82.8 MCH 28.4 MCHC 34.3 RDW Coeff of Luz Maria 17.4 H Plt Count 208 Immature Gran % (Auto) 1.1 Neut % (Auto) 89.6 Lymph % (Auto) 4.7 L [place] % (Auto) 4.3 Eos % (Auto) 0.1 Baso % (Auto) 0.2 Immature Gran # (Auto) 0.2 Neut # 13.4 H Lymph # 0.7 [place] # 0.6 Eos # 0.0 Baso # 0.0 D-Dimer (Manual) 3144.92 Puncture Site L brachial L brach O2 Saturation 56.0 L 100.0 ABG pH 7.213 L* 7.63 H* ABG pCO2 83.5 H 27.5 L ABG pO2 37.0 L* 172.0 H ABG HCO3 33.6 H 28.8 H ABG Total CO2 36 H 30 H ABG Base Excess 6 H 8 H Buck Test + + O2 Delivery Device bipap FiO2 % 21.0 50.0 Sodium 135 L Potassium 2.8 L Chloride 94 L Carbon Dioxide 28 Anion Gap 15.8 BUN 36 H Creatinine 5.20 H* Estimated GFR (MDRD) 10.00 BUN/Creatinine Ratio 6.92 Glucose 134 H Lactic Acid 12.1 Calcium 8.9 Total Bilirubin 0.55 AST 97 H ALT 56 Alkaline Phosphatase 110 Total Creatine Kinase 78 Troponin I 0.0390 B-Natriuretic Peptide 3358 H Total Protein 6.6 Albumin 3.2 L Globulin 3.4 Albumin/Globulin Ratio 0.94 Procalcitonin 0.54 Urine Color Yellow Urine Clarity Cloudy Urine pH 8.0 Ur Specific [place] 1.025 Urine Protein 3+ Urine Glucose (UA) Negative Urine Ketones Negative Urine Blood Trace-intact Urine Nitrite Negative Urine Bilirubin Negative Urine Urobilinogen 0.2 Ur Leukocyte Esterase Negative Urine Microscopic RBC 0-2 Ur Squamous Epith Cells Tntc Orders Category Date Time Status ABG DRAW REQUEST Stat CARDIO 10/09/16 09:21 Completed ABG DRAW REQUEST Stat CARDIO 10/09/16 09:56 Completed BIPAP Routine CARDIO 10/09/16 09:28 Completed EKG-(ED ONLY) Stat CARDIO 10/09/16 09:21 Completed NEBULIZER TREATMENT Stat CARDIO 10/09/16 09:33 Completed C-DIFF MONITORING (NURSING) BID CARE 10/09/16 09:22 Active ED APPLY O2 .ONCE EMERGENCY 10/09/16 09:21 Active ED SAWMILL HAND APPLIED .ONCE EMERGENCY 10/09/16 09:21 Active ED IV/MEDIPORT/POWERPORT .ONCE EMERGENCY 10/09/16 09:21 Active ABG DAILY@0600 LAB 10/10/16 06:00 Ordered ABG DAILY@0600 LAB 10/11/16 06:00 Ordered ABG DAILY@0600 LAB 10/12/16 06:00 Ordered ABG DAILY@0600 LAB 10/13/16 06:00 Ordered ABG Stat LAB 10/09/16 09:21 Completed ABG Stat LAB 10/09/16 10:20 Completed ABG Stat LAB 10/09/16 10:20 Received B-TYPE NATRIURETIC PEPTIDE Stat LAB 10/09/16 10:20 Completed BLOOD CULTURE Stat LAB 10/09/16 10:20 Received C. DIFFICILE Routine LAB 10/09/16 09:22 Uncollected CBC W/ AUTO DIFF Stat LAB 10/09/16 10:20 Completed COMPREHENSIVE METABOLIC PANEL Stat LAB 10/09/16 10:20 Completed CREATINE KINASE Stat LAB 10/09/16 10:20 Completed D-DIMER Stat LAB 10/09/16 10:20 Completed LACTIC ACID Stat LAB 10/09/16 10:20 Completed OCCULT BLOOD, STOOL Stat LAB 10/09/16 09:22 Uncollected PROCALCITONIN Stat LAB 10/09/16 10:20 Completed STOOL CULTURE Stat LAB 10/09/16 10:20 Received TROPONIN I Stat LAB 10/09/16 10:20 Completed URINALYSIS C & S IF INDICATED Stat LAB 10/09/16 09:37 Completed 0.9 % Sodium Chloride [Saline Flush] MEDS 10/09/16 09:21 Active 1 syr IVF PRN PRN Furosemide [Lasix] MEDS 10/09/16 09:31 Discontinued 40 mg IVP ONCE STA Guaifenesin/Codeine Phosphate [Robitussin AC Syrup] MEDS 10/09/16 11:57 Discontinued 5 ml PO ONCE STA Ipratropium/Albuterol Neb [Duoneb] MEDS 10/09/16 09:32 Discontinued 1 vial NEB ONCE STA Potassium Chloride [K-Dur] MEDS 10/09/16 11:57 Discontinued 40 meq PO ONCE STA CHEST, 1V AP ONLY Stat RADS 10/09/16 09:21 Completed Medications Generic Name Dose Route Start Last Admin Trade Name Freq PRN Reason Stop Dose Admin Sodium Chloride 1 syr 10/09/16 09:21 Saline Flush IVF PRN PRN To flush IV Discontinued Medications Generic Name Dose Route Start Last Admin Trade Name Freq PRN Reason Stop Dose Admin Albuterol/Ipratropium 1 vial 10/09/16 09:32 10/09/16 09:48 Duoneb NEB 10/09/16 09:33 1 vial ONCE STA Administration Furosemide 40 mg 10/09/16 09:31 10/09/16 09:42 Lasix IVP 10/09/16 09:32 40 mg ONCE STA Administration Guaifenesin/Codeine Phosphate 5 ml 10/09/16 11:57 Robitussin Ac Syrup PO 10/09/16 11:58 ONCE STA Potassium Chloride 40 meq 10/09/16 11:57 K-Dur PO 10/09/16 11:58 ONCE STA Vital Signs: Temp Pulse Resp BP Pulse Ox 10/09/16 11:35 97.3 F L 10/09/16 10:01 50 L 10/09/16 09:30 58 L 10/09/16 09:13 96.4 F L 120 H 30 H 197/126 H 91 L Departure - Departure Time of Disposition: 12:28 Disposition: TSF SHORT-TRM HOSP Discharge Problem: Respiratory failure Condition: Stable Pt referred to PMD for follow-up: No Allergies/Adverse Reactions: Allergies Sulfa (Sulfonamide Antibiotics) Allergy (Verified 10/09/16 10:09) Unknown JAYSON Inhibitors Adverse Reaction (Verified 10/09/16 10:09) ibuprofen Adverse Reaction (Verified 10/09/16 10:09) Home Medications: Ambulatory Orders Aspirin [Adult Low Dose Aspirin EC] 81 mg PO DAILY 01/12/16 Carvedilol [Coreg] 12.5 mg PO BIDWM 01/12/16 Ergocalciferol (Vitamin D2) [Vitamin D2] 50,000 unit PO WEEKLY 01/12/16 Nifedipine [Nifedical Xl] 60 mg PO BID 01/12/16 Pantoprazole Sodium [Protonix] 20 mg PO DAILY 01/12/16 Clonidine HCl [Catapres] 0.2 mg PO TID 07/30/16 Furosemide 40 mg PO DAILY 07/30/16 Hydralazine HCl 100 mg PO TID 07/30/16 Amlodipine Besylate 10 mg PO DAILY #30 tab-cap 10/02/16
[2016-10-09] MEDS ORDERED: ZOFRAN 4 MG/2 ML IVP STA (09:23)
[2016-10-09 09:30] VITALS: BP 197/126; BMI 22.6
[2016-10-09] MEDS ORDERED: LASIX IVP STA (09:31)
[2016-10-09] MEDS ORDERED: DUONEB NEB STA (09:32)
[2016-10-09 09:50] LABS: ABG PCO2 83.5 mmHg (35-45); ABG PH 7.213 (7.35-7.45)
[2016-10-09 09:51] LABS: ABG BASE EXCESS 6 (-2.0-2.0); ABG HCO3 33.6 (22.0-26.0); ABG TCO2 36 (22.0-28.0)
--- NOTE | 2016-10-09 10:05 | DI ---
EXAM: Chest one view HISTORY: Chest pain COMPARISON: 09/22/2016 TECHNIQUE: Single view of the chest was performed FINDINGS: Left central venous catheter. Pulmonary vascular congestion. No definite airspace consol idation. There is a small left pleural effusion. No visible pneumothorax. Heart is enlarged and u nchanged. Mediastinal contour unchanged, noting atherosclerosis. No acute abnormalities of the bon es. IMPRESSION: Cardiomegaly with pulmonary vascular congestion/congestive heart failure and small left pleural effusion.
[2016-10-09 10:27] LABS: BASOPHILS % (AUTO) 0.2 % (0.0-3.0); EOSINOPHILS % (AUTO) 0.1 % (0.0-7.0); HEMOGLOBIN 9.6 g/dl (12.0-16.0); IMMATURE GRANULOCYTE % (AUTO) 1.1 % (0.0-5.0); LYMPHOCYTES # (AUTO) 0.7 K/uL (0.60-3.4); LYMPHOCYTES % (AUTO) 4.7 (10.0-50.0); MEAN CORPUSCULAR HEMOGLOBIN 28.4 pg (27.0-31.0); MEAN CORPUSCULAR HGB CONC 34.3 (31.8-35.4); MEAN CORPUSCULAR VOLUME 82.8 fl (81.0-99.0); MONOCYTES # (AUTO) 0.6 K/uL (0.4-2.0); MONOCYTES % (AUTO) 4.3 (0-10); NEUTROPHILS # (AUTO) 13.4 K/ul (2.0-6.9); NEUTROPHILS % (AUTO) 89.6; PLATELET COUNT 208 10^3/uL (140-440); RED BLOOD COUNT 3.38 10^6/ul (4.20-5.40); WHITE BLOOD COUNT 14.93 K/ul (4.6-10.2)
[2016-10-09 10:31] LABS: ABG BASE EXCESS 8 (-2.0-2.0); ABG HCO3 28.8 (22.0-26.0); ABG PCO2 27.5 mmHg (35-45); ABG PH 7.63 (7.35-7.45); ABG TCO2 30 (22.0-28.0)
[2016-10-09 10:54] LABS: ALBUMIN 3.2 g/dL (3.4-5.0); ALBUMIN/GLOBULIN RATIO 0.94; ANION GAP 15.8; BILIRUBIN,TOTAL 0.55 mg/dL (0.00-1.20); BUN/CREATININE RATIO 6.92; CALCIUM 8.9 mg/dL (8.2-10.2); POTASSIUM 2.8 mmol/L (3.5-5.10); TOTAL PROTEIN 6.6 g/dL (5.8-8.1); TROPONIN I 0.039 ng/ml (0.0000-0.4000)
[2016-10-09 10:57] LABS: CREATININE 5.2 mg/dL (0.60-1.30)
[2016-10-09 11:17] LABS: BILIRUBIN,URINE Negative (NEGATIVE); KETONES,URINE Negative (NEGATIVE); LEUKOCYTE ESTERASE ,URINE Negative (NEGATIVE); NITRITE,URINE Negative (NEGATIVE); PROTEIN,URINE 3+ (NEGATIVE); URINE, BLOOD Trace-intact (NEGATIVE)
[2016-10-09 11:25] LABS: ADD URINE MICROSCOPIC YES
[2016-10-09 11:35] VITALS: TEMP 97.3
[2016-10-09] MEDS ORDERED: K-DUR PO STA (11:57)
[2016-10-09] MEDS ORDERED: ROBITUSSIN AC SYRUP PO STA (11:57)
[2016-10-11 18:13] LABS: ABG PCO2 27.5 mmHg (35-45); ABG PH 7.628 (7.35-7.45)
[2016-10-11 18:14] LABS: ABG BASE EXCESS 8 (-2.0-2.0); ABG HCO3 28.8 (22.0-26.0); ABG TCO2 30 (22.0-28.0)
== END 2016-10-09 13:36 | disposition short-term general hospital (02) ==
LOC: ED 09:13
DX: J96.90 Respiratory failure, unspecified, unspecified whether with hypoxia or hypercapnia (principal); I12.9 Hypertensive chronic kidney disease with stage 1 through stage 4 chronic kidney disease, or unspecified chronic kidney disease; N18.9 Chronic kidney disease, unspecified; R06.02 Shortness of breath; Z99.2 Dependence on renal dialysis; Z79.899 Other long term (current) drug therapy
CPT/HCPCS: 36415; 80053; 81001; 82550; 82803; 83605; 83880; 84145; 84484; 85025; 85379; 87040; 93005; 93010; 94640; 94660; 96374; 99285

== ENCOUNTER 2016-10-09 13:22 | Outpatient (CLI) | payer OTHER ==
[2012-11-30 10:24] VITALS: TEMP 97
[2016-10-09 09:30] VITALS: BMI 22.6
== END 2016-10-09 13:23 ==
LOC: AMBL 13:22
PROVIDERS: ATTEND Emergency Medicine
DX: N19 Unspecified kidney failure (principal); R06.02 Shortness of breath; J44.9 Chronic obstructive pulmonary disease, unspecified; Z99.2 Dependence on renal dialysis

== ENCOUNTER 2016-11-02 03:47 | Emergency (ER) ==
[2016-11-02 04:04] LABS: ABG PCO2 98.1 mmHg (35-45); ABG PH 7.186 (7.35-7.45)
[2016-11-02 04:05] LABS: ABG BASE EXCESS 9 (-2.0-2.0); ABG HCO3 37.1 (22.0-26.0); ABG TCO2 40 (22.0-28.0)
[2016-11-02 04:11] LABS: BASOPHILS # (AUTO) 0.1 K/uL (0-0.2); BASOPHILS % (AUTO) 0.3 % (0.0-3.0); EOSINOPHILS # (AUTO) 0.2 K/ul (0.0-0.7); EOSINOPHILS % (AUTO) 1.3 % (0.0-7.0); HEMOGLOBIN 11.9 g/dl (12.0-16.0); IMMATURE GRANULOCYTE % (AUTO) 2.9 % (0.0-5.0); LYMPHOCYTES # (AUTO) 1.9 K/uL (0.60-3.4); LYMPHOCYTES % (AUTO) 12.5 (10.0-50.0); MEAN CORPUSCULAR HEMOGLOBIN 29.2 pg (27.0-31.0); MEAN CORPUSCULAR HGB CONC 31.3 (31.8-35.4); MEAN CORPUSCULAR VOLUME 93.1 fl (81.0-99.0); MONOCYTES % (AUTO) 6.7 (0-10); NEUTROPHILS # (AUTO) 11.5 K/ul (2.0-6.9); NEUTROPHILS % (AUTO) 76.3; PLATELET COUNT 260 10^3/uL (140-440); RED BLOOD COUNT 4.08 10^6/ul (4.20-5.40); WHITE BLOOD COUNT 15.06 K/ul (4.6-10.2)
[2016-11-02] MEDS: ANECTINE ONE (04:17)
[2016-11-02 04:23] VITALS: BP 244/117; TEMP 97.2; BMI 20.1
[2016-11-02 04:30] LABS: ALBUMIN 3.4 g/dL (3.4-5.0); ALBUMIN/GLOBULIN RATIO 0.83; ANION GAP 17.3; BILIRUBIN,TOTAL 0.64 mg/dL (0.00-1.20); BUN/CREATININE RATIO 7.95; CALCIUM 8.7 mg/dL (8.2-10.2); CREATININE 3.27 mg/dL (0.60-1.30); POTASSIUM 4.3 mmol/L (3.5-5.10); TOTAL PROTEIN 7.5 g/dL (5.8-8.1)
[2016-11-02 04:36] LABS: TROPONIN I 0.03 ng/ml (0.0000-0.4000)
[2016-11-02] MEDS: VERSED ONE (04:40)
[2016-11-02] MEDS: SUBLIMAZE ONE (04:40)
[2016-11-02] MEDS: DIPRIVAN 100 ML VIAL 100 ML IV ONE (04:45)
--- NOTE | 2016-11-02 04:52 | ED.PDOC ---
General ED Provider: Dr. RASHEED DILLON-ER Chief Complaint: Respiratory Complaint Stated Complaint: brought in by ems in acute resp distress--tachypneic, and hypoxic--dialysis patient.. Time Seen by Physician: 04:15 Mode of Arrival: Ambulance Information Source: EMT Exam Limitations: Clinical condition Primary Care Provider: MARIO [facility]FO[facility] Nursing and Triage Documentation Reviewed and Agree: Yes Respiratory Complaint Exam - Shortness of Air Complaint/Exam Onset/Duration: less than 24hrs Symptoms Are: Still present Timing: Constant Initial Severity: Mild Current Severity: Severe Character: Reports: Dyspnea at rest Aggravating: Reports: None Alleviating: Reports: None Associated Signs and Symptoms: Reports: Rapid breathing, Labored breathing, Decreased intake. Denies: Cough, Wheezing, Chest pain with cough, Chest pain, Fever, Chills, Diaphoresis, Nasal congestion, Dizziness, Calf pain, Calf swelling, Edema Related History: Reports: Similar episode History of Healthcare-Acquired Pneumonia: No Pulmonary Embolism Risk Factors: Reports: Smoking Cardiac Risk Factors: Reports: Smoking, Hypertension Pseudomonas Risk Factors: Reports: Chronic Lung Disease Tuberculosis Risk Factors: Reports: Chronic Resp. Faliure, Smoking Home Oxygen Use: Yes Recent Stress Test: No Recent Echo/LV Function: No Respiratory Distress: Severe Stridor Present: No Tracheal Deviation: No Subcutaneous Emphysema: No Accessory Muscle Use: Yes Diminished Breath Sounds: Yes Prolonged Expiratory Phase: No Unable to Speak Full Sentences: Yes Fatigue: Yes Leg Swelling: No Emanuel's Sign Present: No Grunting Respirations: No Kussmaul Respirations: No Differential Diagnoses: CHF, Pulmonary Edema, COPD Exacerbation Quality Indicator For Non-Traumatic Chest Pain/Syncope: EKG Performed Quality Indicators For Pneumonia/CAP: Blood Cultures-SCU admit, SpO2 assessed, Empiric Antibiotic Rx, Vital signs, Mental status assessed Review of Systems - Review Of Systems Constitutional: Reports: No symptoms Eyes: Reports: No symptoms Ears, Nose, Mouth, Throat: Reports: No symptoms Respiratory: Reports: Short of air Cardiac: Reports: No symptoms GI: Reports: No symptoms : Reports: No symptoms Musculoskeletal: Reports: No symptoms Skin: Reports: No symptoms Neurological: Reports: No symptoms Endocrine: Reports: No symptoms Hematologic/Lymphatic: Reports: No symptoms All Other Systems: Reviewed and Negative Past Medical History - Past Medical History Previously Healthy: No Endocrine: Reports: Unknown Cardiovascular: Reports: Hypertension Respiratory: Reports: Unknown Hematological: Reports: Unknown Gastrointestinal: Reports: Unknown Genitourinary: Reports: CKD (ON DIALYSIS) Neuro/Psych: Reports: Unknown Musculoskeletal: Reports: Unknown Cancer: Reports: Unknown Last Menstrual Period: N/A - Surgical History General Surgical History: Reports: Unknown - Family History Family History: Reports: Unknown (DIALYSIS DUE IN AM ) - Social History Smoking Status: Current every day smoker, Heavy tobacco smoker Hx Substance Use: No Alcohol Screening: None Lives: With family Physical Exam - Physical Exam Appearance: Well-appearing, No pain distress, Well-nourished Eyes: ROSAS ENT: Ears normal, Nose normal, Oropharynx normal Neck: Supple Respiratory: Airway patent, Breath sounds diminished, Retractions Cardiovascular: Tachycardia GI/: Soft, Nontender, No masses, Bowel sounds normal, No Organomegaly Musculoskeletal: Normal strength, ROM intact, No edema, No calf tenderness Skin: Warm, Dry, Normal color Neurological: Sensation intact, Motor intact, Reflexes intact, Cranial nerves intact, Alert, Oriented Psychiatric: Affect appropriate Interpretation - Radiology Interpretation Radiology Interpretation By: ED Physician Radiology Results: Negative Procedures - Intubation Indication: Present: Respiratory Insufficiency Time of Intubation: 04:45 Medications: Yes: Norcuron, Succinylcholine, Propofol Type of Tube Used: Endotracheal Tube Size: 7.5 Cricoid Pressure Used: No Tube Wood Used: Yes Number of Attempts: 1 Suction Used: Yes Glidescope Used: Yes CO2 Detector Used: Yes Lung Sounds Equal Bilaterally: Yes Intubation Complications: Present: No complications Tube Inserted By: r shirley Tube Placement Verified by X-ray: Yes Re-Evaluation - Re-Evaluation Time of Re-Evaluation: 05:32 Status: Unchanged Vital Signs Stable: Yes Pain Level: 1 Appearance: NAD Lungs: Clear Skin: Warm and Dry Neuro: Alert and Oriented X3 CV: RRR Physician Notification - Case Discussed Physician Notified: dr fitzpatrick Time of Notification: 05:32 Critical Care Note - Critical Care Note Total Time (mins): 60 Course - Course Hematology/Chemistry: 11/02/16 04:00 11/02/16 04:00 Orders, Labs, Meds: Lab Review 11/02/16 11/02/16 11/02/16 03:48 04:00 04:51 WBC 15.06 H RBC 4.08 L Hgb 11.9 L Hct 38.0 MCV 93.1 MCH 29.2 MCHC 31.3 L RDW Coeff of Luz Maria 20.6 H Plt Count 260 Immature Gran % (Auto) 2.9 Neut % (Auto) 76.3 Lymph % (Auto) 12.5 [place] % (Auto) 6.7 Eos % (Auto) 1.3 Baso % (Auto) 0.3 Immature Gran # (Auto) 0.4 Neut # 11.5 H Lymph # 1.9 [place] # 1.0 Eos # 0.2 Baso # 0.1 D-Dimer (Manual) 2548.67 Puncture Site Lb Accident O2 Saturation 62.0 L 100.0 ABG pH 7.186 L* 7.562 H* ABG pCO2 98.1 H 35.8 ABG pO2 42.0 L* 217.0 H ABG HCO3 37.1 H 32.3 H ABG Total CO2 40 H 33 H ABG Base Excess 9 H 10 H Buck Test + + O2 Delivery Device Cpap Vent Oxygen Liter Flow 15.00 FiO2 % 100.0 50.0 Sodium 140 Potassium 4.3 Chloride 96 L Carbon Dioxide 31 Anion Gap 17.3 BUN 26 H Creatinine 3.27 H Estimated GFR (MDRD) 16.00 BUN/Creatinine Ratio 7.95 Glucose 181 H Lactic Acid 8.8 Calcium 8.7 Total Bilirubin 0.64 AST 46 H ALT 22 Alkaline Phosphatase 181 H Total Creatine Kinase 38 Troponin I 0.0300 B-Natriuretic Peptide 4008 H Total Protein 7.5 Albumin 3.4 Globulin 4.1 Albumin/Globulin Ratio 0.83 Procalcitonin 61.00 Orders Category Date Time Status ABG DRAW REQUEST Stat CARDIO 11/02/16 03:48 Completed EKG-(ED ONLY) Stat CARDIO 11/02/16 03:48 Completed EKG-(ED ONLY) Stat CARDIO 11/02/16 04:08 Completed Sr. Payroll Manager [ED SALES DEMONSTRATOR APPLIED] .ONCE EMERGENCY 11/02/16 03:50 Active IV [ED IV/MEDIPORT/POWERPORT] .ONCE EMERGENCY 11/02/16 03:50 Active ABG Stat LAB 11/02/16 03:48 Completed ABG Stat LAB 11/02/16 04:51 Completed B-TYPE NATRIURETIC PEPTIDE Stat LAB 11/02/16 04:00 Completed BLOOD CULTURE Stat LAB 11/02/16 04:00 Received BLOOD CULTURE Stat LAB 11/02/16 04:00 Received CBC W/ AUTO DIFF Stat LAB 11/02/16 04:00 Completed COMPREHENSIVE METABOLIC PANEL Stat LAB 11/02/16 04:00 Completed CREATINE KINASE Stat LAB 11/02/16 04:00 Completed D-DIMER Stat LAB 11/02/16 04:00 Completed LACTIC ACID Stat LAB 11/02/16 04:00 Completed PROCALCITONIN Stat LAB 11/02/16 04:00 Completed TROPONIN I Stat LAB 11/02/16 04:00 Completed 0.9 % Sodium Chloride [Saline Flush] MEDS 11/02/16 03:50 Ordered 1 syr IVF PRN PRN Fentanyl Amp [Sublimaze] MEDS 11/02/16 04:01 Discontinued 100 mcg .ROUTE .STK-MED ONE Midazolam HCl Inj [Versed] MEDS 11/02/16 04:01 Discontinued 5 mg .ROUTE .STK-MED ONE Piperacillin Sodium/Tazobactam [Zosyn 3.375 gm] 3.375 MEDS 11/02/16 04:56 Active gm 0.9 % Sodium Chloride [Sodium Chloride] 100 ml IV ONCE Propofol Inj [Diprivan 100 ml Vial] 100 ml MEDS 11/02/16 04:58 Discontinued IV .STK-MED Succinylcholine Chloride [Anectine] MEDS 11/02/16 04:01 Discontinued 20 mg .ROUTE .STK-MED ONE Vecuronium [place] [Norcuron] MEDS 11/02/16 04:07 Discontinued 10 mg .ROUTE .STK-MED ONE CXR [CHEST, 1V AP ONLY] Stat RADS 11/02/16 03:49 Ordered CXR [CHEST, 1V AP ONLY] Stat RADS 11/02/16 04:11 Ordered Medications Generic Name Dose Route Start Last Admin Trade Name Freq PRN Reason Stop Dose Admin Piperacillin Sod/Tazobactam 100 mls @ 100 mls/hr 11/02/16 04:56 11/02/16 05: 10 Sod 3.375 gm/ Sodium Chloride IV 11/02/16 05:55 100 mls/hr ONCE STA Administration Sodium Chloride 1 syr 11/02/16 03:50 Saline Flush IVF PRN PRN To flush IV Vital Signs: Temp Pulse Resp BP Pulse Ox 11/02/16 05:06 20 11/02/16 04:11 97.2 F L 118 H 28 H 244/117 H 88 L Departure - Departure Time of Disposition: 05:25 Disposition: TSF SHORT-TRM HOSP Discharge Problem: Acute respiratory failure Qualifiers: Respiratory failure complication: hypoxia and hypercapnia Qualifier Code: ( J96.01) Acute respiratory failure with hypoxia Condition: Stable Pt referred to PMD for follow-up: Yes Allergies/Adverse Reactions: Allergies Sulfa (Sulfonamide Antibiotics) Allergy (Verified 10/09/16 10:09) Unknown JAYSON Inhibitors Adverse Reaction (Verified 10/09/16 10:09) ibuprofen Adverse Reaction (Verified 10/09/16 10:09) Home Medications: Ambulatory Orders Aspirin [Adult Low Dose Aspirin EC] 81 mg PO DAILY 01/12/16 Carvedilol [Coreg] 12.5 mg PO BIDWM 01/12/16 Ergocalciferol (Vitamin D2) [Vitamin D2] 50,000 unit PO WEEKLY 01/12/16 Nifedipine [Nifedical Xl] 60 mg PO BID 01/12/16 Pantoprazole Sodium [Protonix] 20 mg PO DAILY 01/12/16 Clonidine HCl [Catapres] 0.2 mg PO TID 07/30/16 Furosemide 40 mg PO DAILY 07/30/16 Hydralazine HCl 100 mg PO TID 07/30/16 Amlodipine Besylate 10 mg PO DAILY #30 tab-cap 10/02/16 Transfer Form Completed: Yes Disposition Discussed With: Family (daughter reached by phone)
[2016-11-02 04:55] LABS: ABG BASE EXCESS 10 (-2.0-2.0); ABG HCO3 32.3 (22.0-26.0); ABG PCO2 35.8 mmHg (35-45); ABG PH 7.562 (7.35-7.45); ABG TCO2 33 (22.0-28.0)
[2016-11-02] MEDS: ZOSYN 3.375 GM 3.375 GM in SODIUM CHLORIDE 100 ML IV STA (05:10)
[2016-11-02] MEDS: NORCURON ONE (05:22)
--- NOTE | 2016-11-02 05:24 | ED.PDOC ---
Procedures - Intubation Time of Intubation: 04:18 (RSI) Medications: Yes: Succinylcholine (Anectine 80mg @0414), Versed (versed 2.5mg@ 0414 ), Propofol (propofol 20mg@0414), Other (Fentanyl 25ug@0414) Type of Tube Used: Endotracheal Tube Size: 7 Cricoid Pressure Used: No Tube Wood Used: Yes Position of Tube at Lip: 22 cm Number of Attempts: 1 Suction Used: No Glidescope Used: No CO2 Detector Used: Yes (Et CO2 +) Lung Sounds Equal Bilaterally: Yes Intubation Complications: Present: No complications Tube Inserted By: Nolan Palmer CRNA Tube Placement Verified by X-ray: Yes - IV/Art Line Insertion Location: Lt Radial Type of Line: Arterial Line Invasive Line/IV Catheter Gauge: 22 Number of Attempts: 1 Blood Return Positive: Yes Invasive Line/IV Flushes Without Difficulty: Yes Conscious Sedation - Pre-op Assessment Weight: 125 lb Surgical History: LLL OF THYROID REMOVED - Medical History Past Medical History: Renal Failure Other History: dialysis - Physical Exam Heart Rate/Rhythm: Tachycardia
[2016-11-02] MEDS: SUBLIMAZE IVP STA (05:45)
--- NOTE | 2016-11-02 05:50 | DI ---
EXAM: AP single view of the chest. HISTORY: Dyspnea. FINDINGS: Comparison made with Chest x-ray of 10/09/2016. There is a left-sided dialysis catheter i n stable position. The bones are unremarkable. The cardiac silhouette is enlarged. There are bilat eral infiltrates. The right costophrenic angle is clear. The left costophrenic angle is not well v isualized. There is left basilar consolidation. Impression: Bilateral infiltrates consistent with infection versus edema. Left basilar atelectasis and/or pneumonia. Cardiomegaly. Dialysis catheter as described.
--- NOTE | 2016-11-02 05:53 | DI ---
EXAM: AP single view of the chest. HISTORY: Check endotracheal tube placement. FINDINGS: Comparison made with Chest x-ray of 11/02/2016 at 05:03. There is interval placement of a n endotracheal tube which is in adequate position. The dialysis catheter is in stable position. Th e cardiac silhouette is enlarged. There are diffuse bilateral infiltrates. The right costophrenic a ngle is clear. The left costophrenic angle is incompletely visualized secondary to the field of vie w. There is interval resolution of the left basilar consolidation. There is skin fold artifact proj ecting over the right lower lobe. Impression: Interval resolution of left basilar consolidation. Bilateral infiltrates consistent with infection versus edema. Cardiomegaly. Tubes and lines as described.
[2016-11-02 06:17] LABS: ABG BASE EXCESS 9 (-2.0-2.0); ABG PCO2 29.7 mmHg (35-45); ABG PH 7.613 (7.35-7.45); ABG TCO2 31 (22.0-28.0)
[2016-11-02 06:35] LABS: BILIRUBIN,URINE Negative (NEGATIVE); KETONES,URINE Negative (NEGATIVE); LEUKOCYTE ESTERASE ,URINE Negative (NEGATIVE); NITRITE,URINE Negative (NEGATIVE); PH,URINE 8.5 (5-9); PROTEIN,URINE 3+ (NEGATIVE); URINE, BLOOD Trace-intact (NEGATIVE)
[2016-11-02 06:37] LABS: ADD URINE MICROSCOPIC YES
== END 2016-11-02 07:28 | disposition short-term general hospital (02) ==
LOC: ED 03:47
DX: J96.01 Acute respiratory failure with hypoxia (principal); R06.02 Shortness of breath; R00.0 Tachycardia, unspecified; I10 Essential (primary) hypertension; F17.200 Nicotine dependence, unspecified, uncomplicated
CPT/HCPCS: 36415; 80053; 81001; 82550; 82803; 83605; 83880; 84145; 84484; 85025; 85379; 87040; 93005; 93010; 96374; 99291

== ENCOUNTER 2016-11-02 07:32 | Outpatient (CLI) ==
[2012-11-30 10:24] VITALS: TEMP 97
[2016-11-02 04:23] VITALS: BMI 20.1
== END 2016-11-02 07:33 | disposition home or self-care (01) ==
LOC: AMBL 07:32
PROVIDERS: ATTEND Internal Medicine
DX: R06.9 Unspecified abnormalities of breathing (principal); J44.9 Chronic obstructive pulmonary disease, unspecified; I50.9 Heart failure, unspecified